=== PATIENT | male | born 1940 | race Caucasian/White ===

== ENCOUNTER → 2023-05-08 07:38 | Outpatient (REF) | payer MEDICARE, SELFPAY | LOC: WOUND 07:38 | PROVIDERS: ATTENDING PHYSICIAN Surgery; REFERRING PHYSICIAN Family Medicine | DX: I87.313 Chronic venous hypertension (idiopathic) with ulcer of bilateral lower extremity (principal); L97.811 Non-pressure chronic ulcer of other part of right lower leg limited to breakdown of skin; L97.821 Non-pressure chronic ulcer of other part of left lower leg limited to breakdown of skin; I89.0 Lymphedema, not elsewhere classified; R73.01 Impaired fasting glucose; I25.10 Atherosclerotic heart disease of native coronary artery without angina pectoris; I65.21 Occlusion and stenosis of right carotid artery; I10 Essential (primary) hypertension; Z98.890 Other specified postprocedural states | CPT/HCPCS: 97597; 99204 ==

== ENCOUNTER → 2023-05-09 14:58 | Outpatient (REF) | payer MEDICARE, SELFPAY | LOC: WOUND 14:58 | PROVIDERS: ATTENDING PHYSICIAN Surgery; REFERRING PHYSICIAN Family Medicine | DX: I87.313 Chronic venous hypertension (idiopathic) with ulcer of bilateral lower extremity (principal); L97.811 Non-pressure chronic ulcer of other part of right lower leg limited to breakdown of skin; I89.0 Lymphedema, not elsewhere classified; R73.01 Impaired fasting glucose; I25.10 Atherosclerotic heart disease of native coronary artery without angina pectoris; I65.21 Occlusion and stenosis of right carotid artery; I10 Essential (primary) hypertension; Z98.890 Other specified postprocedural states | CPT/HCPCS: 29580; 97597; 99204 ==

== ENCOUNTER → 2023-05-22 13:42 | Outpatient (REF) | payer MEDICARE, SELFPAY | LOC: WOUND 13:42 | PROVIDERS: ATTENDING PHYSICIAN Surgery; REFERRING PHYSICIAN Family Medicine | DX: I87.313 Chronic venous hypertension (idiopathic) with ulcer of bilateral lower extremity (principal); L97.811 Non-pressure chronic ulcer of other part of right lower leg limited to breakdown of skin; L97.821 Non-pressure chronic ulcer of other part of left lower leg limited to breakdown of skin; I10 Essential (primary) hypertension; I89.0 Lymphedema, not elsewhere classified; R73.01 Impaired fasting glucose; I25.10 Atherosclerotic heart disease of native coronary artery without angina pectoris; Z98.890 Other specified postprocedural states; I65.21 Occlusion and stenosis of right carotid artery | CPT/HCPCS: 97597 ==

== ENCOUNTER → 2023-10-14 13:53 | Outpatient (REF) | payer MEDICARE, SELFPAY | LOC: DHVS 13:53 | PROVIDERS: ATTENDING PHYSICIAN Surgery Vascular Surgery; FAMILY PHYSICIAN Family Medicine | DX: I65.21 Occlusion and stenosis of right carotid artery (principal) | CPT/HCPCS: 93880 ==

== ENCOUNTER → 2023-11-24 09:52 | Outpatient (REF) | payer MEDICARE, SELFPAY | LOC: HWRAD 09:52 | PROVIDERS: ATTENDING PHYSICIAN Family Medicine | DX: E04.1 Nontoxic single thyroid nodule (principal) | CPT/HCPCS: 76536 ==

== ENCOUNTER → 2024-02-23 06:08 | Outpatient (REF) | payer MEDICARE, SELFPAY ==
[2024-02-23 10:02] LABS: % Basophils 0.9 % (0-2); % Eosinophils 2.7 % (0-6); % Immature Granulocytes 0.3 % (0-0.5); % Lymphocytes 28.3 % (20.5-51.1); % Monocytes 9.3 % (1.7-9.3); % Neutrophils 58.5 % (42.2-75.2); Absolute Basophils 0.1 10^3/uL (0-0.2); Absolute Eosinophils 0.2 10^3/uL (0-0.7); Absolute Lymphocytes 2.2 10^3/uL (1.2-3.4); Absolute Monocytes 0.7 10^3/uL (0.1-0.6); Absolute Neutrophils 4.5 10^3/uL (1.4-6.5); Hemoglobin 13.2 g/dL (13.0-18.0); Mean Corp Hgb Conc. 33.8 g/dL (33.0-37.0); Mean Corpuscular Hgb 30.3 pg (27.0-31.0); Mean Corpuscular Volume 89.4 fL (80.0-94.0); Nucleated Red Blood Cells % 0 % (-); Platelet Count 176 10^3/uL (130-400); Red Blood Cell Count 4.36 10^6/uL (4.70-6.10); Red Cell Dist. Width 12.8 % (11.5-14.5); White Blood Cell Count 7.7 10^3/uL (4.8-10.8)
[2024-02-23 10:16] LABS: Glycohemoglobin (HgbA1c) 6.4 % (4.0-5.6)
[2024-02-23 10:20] LABS: ALT (SGPT) 45 U/L (0-50); AST (SGOT) 33 U/L (17-59); Albumin 4.1 g/dl (3.5-5.0); Alkaline Phosphatase 68 U/L (38-126); Blood Urea Nitrogen 20 mg/dl (9-20); Calcium 9.2 mg/dl (8.4-10.2); Carbon Dioxide 30 mmol/L (22-30); Chloride 102 mmol/L (98-107); Glucose 107 mg/dl (70-99); HDL Cholesterol 44 mg/dl; LDL Cholesterol, Calculated 36 mg/dl; Potassium 4.1 mmol/L (3.5-5.1); Sodium 139 mmol/L (135-145); Total Bilirubin 1.3 mg/dl (0.2-1.3); Total Cholesterol 95 mg/dl (50-199); Total Protein 6.6 g/dl (6.3-8.2); Triglyceride 76 mg/dl (10-149); Very Low Density Lipoprotein 15 mg/dl (0-30); eGFR > 60.00
[2024-02-23 10:45] LABS: TSH Reflex To Free T4 0.69 uIU/ml (0.47-4.68)
[2024-02-23 11:04] LABS: Vitamin B12 569 pg/ml (239-931)
[2024-02-23 11:19] LABS: Microalbumin, Random Urine < 0.6 mg/dl (0.6-1.7)
== END ==
LOC: HWLAB 06:08
PROVIDERS: ATTENDING PHYSICIAN Family Medicine
DX: E11.42 Type 2 diabetes mellitus with diabetic polyneuropathy (principal); E78.2 Mixed hyperlipidemia; I10 Essential (primary) hypertension; Z79.899 Other long term (current) drug therapy
CPT/HCPCS: 36415; 80053; 80061; 82043; 82570; 82607; 83036; 84443; 85025

== ENCOUNTER → 2024-04-15 12:16 | Outpatient (REF) | payer MEDICARE, SELFPAY | LOC: WOUND 12:16 | PROVIDERS: ATTENDING PHYSICIAN Surgery; FAMILY PHYSICIAN Family Medicine | DX: I87.313 Chronic venous hypertension (idiopathic) with ulcer of bilateral lower extremity (principal); L97.212 Non-pressure chronic ulcer of right calf with fat layer exposed; L97.222 Non-pressure chronic ulcer of left calf with fat layer exposed; I89.0 Lymphedema, not elsewhere classified; I25.10 Atherosclerotic heart disease of native coronary artery without angina pectoris; I10 Essential (primary) hypertension | CPT/HCPCS: 29581; 99213 ==

== ENCOUNTER → 2024-04-19 13:35 | Outpatient (REF) | payer MEDICARE, SELFPAY | LOC: DHVS 13:35 | PROVIDERS: ATTENDING PHYSICIAN Surgery Vascular Surgery; FAMILY PHYSICIAN Family Medicine | DX: Z98.890 Other specified postprocedural states (principal); I65.21 Occlusion and stenosis of right carotid artery | CPT/HCPCS: 93880 ==

== ENCOUNTER → 2024-04-22 14:20 | Outpatient (REF) | payer MEDICARE, SELFPAY | LOC: WOUND 14:20 | PROVIDERS: ATTENDING PHYSICIAN Surgery; FAMILY PHYSICIAN Family Medicine | DX: I87.313 Chronic venous hypertension (idiopathic) with ulcer of bilateral lower extremity (principal); L97.212 Non-pressure chronic ulcer of right calf with fat layer exposed; L97.222 Non-pressure chronic ulcer of left calf with fat layer exposed; I89.0 Lymphedema, not elsewhere classified; I25.10 Atherosclerotic heart disease of native coronary artery without angina pectoris; I10 Essential (primary) hypertension | CPT/HCPCS: 99213 ==

== ENCOUNTER → 2024-04-29 13:54 | Outpatient (REF) | payer MEDICARE, SELFPAY | LOC: WOUND 13:54 | PROVIDERS: ATTENDING PHYSICIAN Surgery; FAMILY PHYSICIAN Family Medicine | DX: I87.313 Chronic venous hypertension (idiopathic) with ulcer of bilateral lower extremity (principal); L97.212 Non-pressure chronic ulcer of right calf with fat layer exposed; L97.222 Non-pressure chronic ulcer of left calf with fat layer exposed; I89.0 Lymphedema, not elsewhere classified; I25.10 Atherosclerotic heart disease of native coronary artery without angina pectoris; I10 Essential (primary) hypertension | CPT/HCPCS: 99212 ==

== ENCOUNTER → 2024-05-19 14:19 | Outpatient (REF) | payer MEDICARE, SELFPAY | LOC: HWRAD 14:19 | PROVIDERS: ATTENDING PHYSICIAN Nurse Practitioner; FAMILY PHYSICIAN Family Medicine | DX: N43.3 Hydrocele, unspecified (principal) | CPT/HCPCS: 76870; 93976 ==

== ENCOUNTER → 2024-05-20 13:36 | Outpatient (REF) | payer MEDICARE, SELFPAY ==
[2024-05-20 16:41] LABS: PSA, Total - Diagnostic 0.25 ng/ml (0.0-4.0)
== END ==
LOC: HWLAB 13:36
PROVIDERS: ATTENDING PHYSICIAN Nurse Practitioner; FAMILY PHYSICIAN Family Medicine
DX: R60.9 Edema, unspecified (principal); N40.0 Benign prostatic hyperplasia without lower urinary tract symptoms
CPT/HCPCS: 36415; 84153

== ENCOUNTER 2024-07-15 06:20 | Day surgery (SDC) | payer MEDICARE, SELFPAY ==
[2024-07-15] VITALS (11 sets, daily range): BP systolic 118–175; BP diastolic 56–105; BMI 34.8
[2024-07-15 06:28] LABS: Glucose - Point of Care 113 mg/dl (70-99)
[2024-07-15] MEDS: TYLENOL 1000 MG PO (06:45)
--- NOTE | 2024-07-15 07:02 | W.SUR.PREOP ---
Pre-Operative Surgical Note
-
I have examined this patient prior to the performance of the scheduled procedure.
The patient's condition is unchanged from the time of the current History and
Physical and the patient is able to undergo the scheduled procedure.
--- NOTE | 2024-07-15 07:02 | HP.FOC2 ---
Focused History & Physical
Chief Complaint
HPI:
Chief Complaint: Right inguinal hernia
HPI / Indication for Planned Procedure: Robotic right inguinal hernia repair with mesh
Relevant Past Medical History: Coronary Artery Disease and Hypertension
Relevant Social History: Negative
Relevant Family History: Negative
Relevant Past Surgical History: Positive for (Cholecystectomy)
Review of Systems
Review of Pertinent Systems: All Systems Negative
Medication
See Medication form for detailed medications: Yes
Medication List (including Herbals & OTC):
atorvastatin 40 mg tablet 40 mg PO QPM High Cholesterol 06/02/17
fluticasone propionate 50 mcg/actuation nasal spray,suspension 2 spray intranasal HS Allergies 01/30/23
lisinopril 2.5 mg tablet 2.5 mg PO BID HTN 01/30/23
metformin 500 mg tablet 500 mg PO QPM Diabetes 01/30/23
triamterene 37.5 mg-hydrochlorothiazide 25 mg tablet 1 tab PO DAILY Blood Pressure 01/30/23
alfuzosin 10 mg tablet,extended release 24 hr 10 mg PO HS 07/12/24
aspirin 81 mg tablet,delayed release 81 mg PO DAILY 07/12/24
cholecalciferol (vitamin D3) 25 mcg (1,000 unit) tablet (Vitamin D3) 25 mcg PO DAILY 07/12/24
huoseymdhpf-pml-xtvqfoxku-vitC capsule (Glucosamine Complex-MSM capsule) 1 cap PO DAILY 07/12/24
aqpaiclbsjfi-lxbbcdif-bcpguu tablet (Multivitamin 50 Plus tablet) 1 tab PO DAILY 07/12/24
omega 5-wel-aqq-fish oil 1,200 mg (144 mg-216 mg) capsule (Fish Oil) 1 cap PO DAILY 07/12/24
Medications Reviewed: Yes
Allergies and Reactions
Patient has Allergies: Yes
Noted Allergies and Reactions:
Allergy/AdvReac Type Severity Reaction Status Date / Time
pollen extracts Allergy hayfever Verified 07/15/24 06:23
cephalexin [From Keflex] AdvReac Nausea / Verified 07/15/24 06:23
Vomiting
Pertinent Physical Exam
All Other Systems: Negative
Head/Neck: Normal
Diagnosis / Assessment
This is an 83-year-old male with a symptomatic right inguinal hernia
Plan / Procedure
Will plan for the robotic right inguinal hernia repair with mesh, possible left.
Anesthesia/Sedation to be done by Anesthesia Provider: Yes
--- NOTE | 2024-07-15 09:24 | W.IMMPOSTOP ---
Surgical Immed Post Op Note
-
Primary Surgeon: Leif Delaney MD
Assisting Surgeon: None
Pre-op Diagnosis: Right inguinal hernia
Post-op Diagnosis: Same
Procedure Performed: Robotic right inguinal hernia repair with mesh
Anesthesia Type: General
Specimen / Cultures: None
Estimated Blood Loss: 11 cc
Complications: None
Operative Findings: Large indirect inguinal hernia with small aperture containing mostly medial umbilical ligament fat. No direct or femoral defects. No cord lipoma. Critical view of the MPO obtained. Reinforced with a large right 3D max mid
weight uncoated polypropylene mesh.
POST OP PLAN:
Will discharge home with an ice pack after voiding.
--- NOTE | 2024-07-15 09:25 | OR.RPT ---
Operative Report
Operative Report
Patient Name: Prateek Brennan
: 1940
Date of Operation: 07/15/2024
Preoperative Diagnosis: Reducible Inguinal hernia, right
Postoperative Diagnosis: Same
Procedure(s):
Robotic Inguinal Hernia Repair with mesh, right (MAHESH approach)
Surgeon(s):
Dr. Delaney
Detective [place](s):
DENNYS Martinez
Anesthesia: General
Estimated Blood Loss: 11 cc
Urine Output: None
Drains/Lines/Implants: Large 3D Max Bard mid weight uncoated polypropylene mesh
Specimens: None
Indication for surgery: The patient has a history of groin pain and noted on exam to have a right inguinal Hernia. Following review of therapeutic options they have elected to undergo a minimally invasive repair.
Operative Findings: Large indirect inguinal hernia with small aperture containing mostly medial umbilical ligament fat. No direct or femoral defects. No cord lipoma. Critical view of the MPO obtained. Reinforced with a large right 3D max mid
weight uncoated polypropylene mesh.
Details of the operation:
The patient was brought to the Operating Room and placed in the supine position with the arms tucked. IV antibiotics were infused and Venodyne stockings placed. Following uneventful induction of general endotracheal anesthesia, an orogastric tube
were placed. The abdomen was prepped and draped in the usual sterile fashion. The abdomen was entered using a Veress technique which required 1 pass, pneumoperitoneum to 15 mmHg was obtained without difficulty. An 8mm trochar was passed through
the abdominal wall roughly 20 cm cephalad to the inguinal canal. We then confirmed that no inadvertent injury was made while passing the trocar or Veress needle. We then placed two additional 8 mm ports in the left upper and right upper quadrants.
We then docked the robot with a Prograsper in the left hand port and monopolar scissors in the right. A right inguinal hernia was readily identified. No defect was noted on the contralateral side. We then began by creating a flap at the level of
the ASIS laterally working our way medially to the medial umbilical fold. We did enter the retrorectus space as the peritoneum was very thin. Staying onto the peritoneum we were able to circumferentially dissect around the hernia sac and and peel
it off of the underlying spermatic cord and testicular vessels, taking care to preserve them. Medially we identified the midline pubis as well as Bossman's ligament and ensured to dissect 2 cm below the pubic rim over the bladder. After exposure of
the entire myopectineal orifice we identified and reduced: A large indirect inguinal hernia with a fairly small aperture containing mostly medial umbilical fat, no direct inguinal hernia, no femoral hernia, and no cord lipoma
We then fixated a large 3D max mesh with a 2-0 Vicryl stitch at coopers medially and superior laterally. The flap was then closed with a running 2-0 barbed monocryl suture ensuring that the tail was cut flush with the medial fat pad so that no
barbs were exposed. During the closure of the flap an Angiocath was inserted and 20 cc of quarter percent Marcaine was instilled. The area in the flap cavity was then evacuated of air confirming that the mesh was flush and there were no folds.
There were multiple small rents in the peritoneum of the flap which was easily closed using the redundant hernia sac tissue. All needles and instruments were then removed and the robot was undocked. The abdomen was then desufflated, and
pneumoperitoneum evacuated. All skin sites were then closed with 4-0 Monocryl followed by Dermabond. Counts were correct and overall, the patient tolerated the procedure well and was taken to the Recovery Room postoperatively in stable condition.
I was the attending physician and performed the procedure with assistance of the PA above. The assistance of DENNYS Martinez was required due to the complexity of the procedure. During the procedure Ning assisted with port placement, instrument and
needle exchanges, and closure of the wound. I was present for all portions of the case, excluding skin closure.
Leif Delaney MD
[2024-07-15 09:38] LABS: Glucose - Point of Care 149 mg/dl (70-99)
[2024-07-15] MEDS: MOTRIN 600 MG PO (11:02)
== END 2024-07-15 12:15 | disposition home or self-care (01) ==
LOC: SDS 06:20
PROVIDERS: ATTENDING PHYSICIAN Surgery
DX: K40.90 Unilateral inguinal hernia, without obstruction or gangrene, not specified as recurrent (principal)
CPT/HCPCS: 49650; 82962; C1781

== ENCOUNTER → 2024-08-16 06:27 | Outpatient (REF) | payer MEDICARE, SELFPAY ==
[2024-08-16 09:54] LABS: ALT (SGPT) 49 U/L (0-50); AST (SGOT) 38 U/L (17-59); Albumin 4.3 g/dl (3.5-5.0); Alkaline Phosphatase 65 U/L (38-126); Blood Urea Nitrogen 22 mg/dl (9-20); Calcium 9.3 mg/dl (8.4-10.2); Carbon Dioxide 32 mmol/L (22-30); Chloride 102 mmol/L (98-107); Glucose 101 mg/dl (70-99); HDL Cholesterol 46 mg/dl; LDL Cholesterol, Calculated 43 mg/dl; Potassium 4.1 mmol/L (3.5-5.1); Sodium 141 mmol/L (135-145); Total Bilirubin 1.2 mg/dl (0.2-1.3); Total Cholesterol 103 mg/dl (50-199); Total Protein 6.4 g/dl (6.3-8.2); Triglyceride 71 mg/dl (10-149); Very Low Density Lipoprotein 14 mg/dl (0-30); eGFR > 60.00
[2024-08-16 10:06] LABS: % Basophils 1.2 % (0-2); % Eosinophils 8.2 % (0-6); % Immature Granulocytes 0.1 % (0-0.5); % Lymphocytes 31.2 % (20.5-51.1); % Monocytes 9.2 % (1.7-9.3); % Neutrophils 50.1 % (42.2-75.2); Absolute Basophils 0.1 10^3/uL (0-0.2); Absolute Eosinophils 0.6 10^3/uL (0-0.7); Absolute Lymphocytes 2.1 10^3/uL (1.2-3.4); Absolute Monocytes 0.6 10^3/uL (0.1-0.6); Absolute Neutrophils 3.4 10^3/uL (1.4-6.5); Hematocrit 41.1 % (39.0-52.0); Hemoglobin 13.3 g/dL (13.0-18.0); Mean Corp Hgb Conc. 32.4 g/dL (33.0-37.0); Mean Corpuscular Hgb 30.5 pg (27.0-31.0); Mean Corpuscular Volume 94.3 fL (80.0-94.0); Mean Platelet Volume 9.8 fL (7.4-10.4); Nucleated Red Blood Cells % 0 % (-); Platelet Count 187 10^3/uL (130-400); Red Blood Cell Count 4.36 10^6/uL (4.70-6.10); Red Cell Dist. Width 13.1 % (11.5-14.5); White Blood Cell Count 6.7 10^3/uL (4.8-10.8)
[2024-08-16 10:22] LABS: TSH Reflex To Free T4 1.09 uIU/ml (0.47-4.68)
[2024-08-16 10:38] LABS: Glycohemoglobin (HgbA1c) 5.8 % (4.0-5.6)
[2024-08-16 10:49] LABS: Microalbumin, Random Urine 0.8 mg/dl (0.6-1.7); Microalbumin/creatinine Ratio 9.3 mg/g
== END ==
LOC: HWLAB 06:27
PROVIDERS: ATTENDING PHYSICIAN Family Medicine
DX: I10 Essential (primary) hypertension (principal); E78.2 Mixed hyperlipidemia; E11.42 Type 2 diabetes mellitus with diabetic polyneuropathy; E04.1 Nontoxic single thyroid nodule
CPT/HCPCS: 36415; 80053; 80061; 82043; 82570; 83036; 84443; 85025

== ENCOUNTER 2024-09-09 15:16 | Emergency (ER) | payer MEDICARE, SELFPAY ==
[2024-09-09 15:42] VITALS: BP 178/70
[2024-09-09 16:04] LABS: % Basophils 1.4 % (0-2); % Eosinophils 7.5 % (0-6); % Immature Granulocytes 0.5 % (0-0.5); % Lymphocytes 31.7 % (20.5-51.1); % Monocytes 16.1 % (1.7-9.3); % Neutrophils 42.8 % (42.2-75.2); Absolute Basophils 0.1 10^3/uL (0-0.2); Absolute Eosinophils 0.3 10^3/uL (0-0.7); Absolute Lymphocytes 1.3 10^3/uL (1.2-3.4); Absolute Monocytes 0.7 10^3/uL (0.1-0.6); Absolute Neutrophils 1.8 10^3/uL (1.4-6.5); Hematocrit 36.4 % (39.0-52.0); Hemoglobin 12.6 g/dL (13.0-18.0); Mean Corp Hgb Conc. 34.6 g/dL (33.0-37.0); Mean Corpuscular Volume 89.7 fL (80.0-94.0); Mean Platelet Volume 9.3 fL (7.4-10.4); Nucleated Red Blood Cells % 0 % (-); Platelet Count 155 10^3/uL (130-400); Red Blood Cell Count 4.06 10^6/uL (4.70-6.10); Red Cell Dist. Width 13.3 % (11.5-14.5); White Blood Cell Count 4.2 10^3/uL (4.8-10.8)
[2024-09-09 16:20] LABS: ALT (SGPT) 41 U/L (0-50); AST (SGOT) 36 U/L (17-59); Albumin 4.2 g/dl (3.5-5.0); Alkaline Phosphatase 68 U/L (38-126); Blood Urea Nitrogen 16 mg/dl (9-20); Calcium 8.9 mg/dl (8.4-10.2); Carbon Dioxide 29 mmol/L (22-30); Chloride 104 mmol/L (98-107); Glucose 108 mg/dl (70-99); Potassium 3.7 mmol/L (3.5-5.1); Sodium 138 mmol/L (135-145); Total Bilirubin 1.2 mg/dl (0.2-1.3); Total Protein 6.6 g/dl (6.3-8.2); eGFR > 60.00
[2024-09-09 17:15] VITALS: BP 137/72
--- NOTE | 2024-09-09 19:29 | ED.SKININJ ---
HPI-Injury
General
Chief Complaint: Head Injury
Source: patient
Exam Limitations: none
Time Seen by Provider: 09/09/24 17:36
Nursing documentation reviewed up to this point in time: agreed with
History of Present Illness-Injury
Is this injury a work related problem?: No
Is pt an associate of [facility]?: No
Initial Injury comments:
Patient to ED for eval of head injury s/p fall. States he lost his balance and fell in bedroom. Hit face on floor. No LOC. Has large abrasion to forehead, bruising to left orbit. Brought to ED by spouse of eval. Incident occurred 2 days ago.
Past History
Past History
ED Past Medical History: HTN, Hypercholesterolemia and Other (sleep apnea)
ED Past Surgical History: Orthopedic
Social History
Personal:
Living: with family
Review of Systems
Review of Systems
Allergies reviewed?: Yes
All Other Systems: ROS reviewed and negative except as documented in HPI and ROS
Constitutional: Reports no symptoms
EENT: Reports other (bruising left orbit)
Respiratory: Reports no symptoms
Cardiac: Reports no symptoms
ABD/GI: Reports no symptoms
: Reports no symptoms
Musculoskeletal: Reports no symptoms
Skin: Reports other (abrasion to forehead)
Neurological: Reports no symptoms
Psychiatric: Reports no symptoms
Phy Exam
General Physical Exam
General Presentation: well appearing and no apparent distress
General age: appears stated age
General Skin: warm and dry
General Habitus: normal
General Mental: alert
General Hydration: appears well hydrated
Eye Exam
Eye Exam: PERRL, globe normal and other (Bruising to left medial orbit.)
Neurological Exam
Neurological Exam: alert, oriented x3, CN II-XII intact, no motor deficits, no sensory deficits, speech normal and normal gait
[place] Coma Scale
Eye Opening: Spontaneous
Verbal Response: Oriented
Motor Response: Obeys Commands
GCS Total Score: 15
Musculoskeletal Exam
Musculoskeletal Exam: full ROM, neuro vasc intact and other (Full nonpainful ROM head/neck, upper and lower extremities.)
Skin Exam
Skin Exam: normal color, warm/dry, no rash and other (Large superficial abrasion to forhead/anterior scalp. No s/s infection)
Psychiatric Exam
Psychiatric Exam: normal mood/affect
Course
Orders/Labs/Results
Orders:
Orders
09/09/24 15:[address] [CT Head W/o Iv Contrast] Urgent
Comment:
Reason For Exam: head injury
09/09/24 15:49
Cervical Spine wo Contrast CT [CT Cervical Spine W/o Iv Contr] Urgent
Comment:
Reason For Exam: head injury
09/09/24 15:56
Complete Blood Count/With Diff Urgent
Comprehensive Metabolic Panel Urgent
09/09/24 17:[address] [CT Orbits W/o Iv Contrast] Urgent
Comment:
Reason For Exam: attn left orbit
Abnormal Lab Results
09/09/24
15:56
WBC 4.2 L 10^3/uL
(4.8-10.8)
RBC 4.06 L 10^6/uL
(4.70-6.10)
Hgb 12.6 L g/dL
(13.0-18.0)
Hct 36.4 L %
(39.0-52.0)
Absolute Monos (auto) 0.7 H 10^3/uL
(0.1-0.6)
Monocytes % 16.1 H %
(1.7-9.3)
Eosinophils % 7.5 H %
(0-6)
Glucose 108 H mg/dl
(70-99)
09/09/24 15:56
09/09/24 15:56
Vital Signs
Initial and Last Documented VS:
Initial Vital Signs
Temp Pulse Resp BP Pulse Ox
98.5 F 58 20 178/70 97
09/09/24 15:42 09/09/24 15:42 09/09/24 15:42 09/09/24 15:42 09/09/24 15:42
Last Documented Vital Signs
Temp Pulse Resp BP Pulse Ox
98.1 F 63 18 137/72 96
09/09/24 17:15 09/09/24 17:15 09/09/24 17:15 09/09/24 17:15 09/09/24 17:15
*Radiology
Radiology exam reviewed: radiology read reviewed
*Pulse Oximetry
Patient hypoxic: no
*Critical Care Note
Total Time (30-74mins, 75-104mins- exclusive of procedures): Not Applicable
ED Attending Note
-
Portions of this chart may have been created with voice recognition software.� Occasional wrong word or��sound alike� substitutions may have occurred due to the inherent limitations of voice recognition software.
Discharge Plan
Departure
Patient Disposition: Home (Routine Discharge)
Date of Disposition: 09/09/24
Time of Disposition: 19:26
Patient with high blood pressure during this ER visit?: No
Condition: Good
Covid-19: Not Applicable
Discharge Problem:
Head injury, Contusion of left orbit, Abrasion of scalp
Instructions: Wound Care (DC), Head Injury in Adults (DC), Contusion (DC)
Prescriptions:
No Action
atorvastatin 40 MG tablet
40 mg PO QPM
triamterene-hydrochlorothiazid 37.5-25 mg Tablet
1 tab PO DAILY
fluticasone propionate 50 mcg/actuation [place],Suspension
2 spray INTRANASAL HS
lisinopril 2.5 mg Tablet
2.5 mg PO BID
metformin 500 mg Tablet
500 mg PO QPM
aspirin 81 mg Tablet,Delayed Release (Dr/Ec)
81 mg PO DAILY
Multivitamin 50 Plus Tablet
1 tab PO DAILY
Glucosamine Complex-MSM Capsule
1 cap PO DAILY
alfuzosin 10 mg Tablet Extended Release 24 Hr
10 mg PO HS
omega 0-yqk-zsr-fish oil [Fish Oil] 1,200 (144-216) mg Capsule
1 cap PO DAILY
cholecalciferol (vitamin D3) [Vitamin D3] 25 mcg (1,000 unit) Tablet
25 mcg PO DAILY
acetaminophen [acetaminophen] 325 mg tablet
650 mg PO Q6HPRN PRN (Reason: mild pain) Qty: 14 0RF
ibuprofen 600 mg tablet
600 mg PO Q6H PRN (Reason: pain) Qty: 14 0RF
Referrals:
Imelda Gandhi MD [Family Provider] - Follow up in 2-3 days
Interventions
Interventions:
*Risk Screen - Suicide Last Done: 09/09/24 15:42
*Neglect/Abuse Screening Last Done: 09/09/24 15:42
ED- Neurological Assessment Last Done: 09/09/24 18:42
ED-Skin Assessment Last Done: 09/09/24 18:42
Discharge Date and Time
Print Language: WELSH
[2024-09-09 19:50] VITALS: BP 158/68
== END 2024-09-09 19:52 | disposition home or self-care (01) ==
LOC: EMR 15:16
PROVIDERS: EMERGENCY PHYSICIAN Emergency Medicine; FAMILY PHYSICIAN Family Medicine
DX: S09.90XA Unspecified injury of head, initial encounter (principal); S05.12XA Contusion of eyeball and orbital tissues, left eye, initial encounter; W01.0XXA Fall on same level from slipping, tripping and stumbling without subsequent striking against object, initial encounter; I10 Essential (primary) hypertension; E78.00 Pure hypercholesterolemia, unspecified; G47.30 Sleep apnea, unspecified
CPT/HCPCS: 99284; 70450; 70480; 72125; 80053; 85025; 99285

== ENCOUNTER → 2024-09-15 06:40 | Outpatient (REF) | payer MEDICARE, SELFPAY ==
[2024-09-15 09:46] LABS: % Basophils 1.2 % (0-2); % Immature Granulocytes 0.6 % (0-0.5); % Monocytes 11.5 % (1.7-9.3); % Neutrophils 50.7 % (42.2-75.2); Absolute Basophils 0.1 10^3/uL (0-0.2); Absolute Eosinophils 0.3 10^3/uL (0-0.7); Absolute Monocytes 0.7 10^3/uL (0.1-0.6); Absolute Neutrophils 3.3 10^3/uL (1.4-6.5); Hematocrit 39.7 % (39.0-52.0); Hemoglobin 13.3 g/dL (13.0-18.0); Mean Corp Hgb Conc. 33.5 g/dL (33.0-37.0); Mean Corpuscular Hgb 30.9 pg (27.0-31.0); Mean Corpuscular Volume 92.3 fL (80.0-94.0); Mean Platelet Volume 9.1 fL (7.4-10.4); Nucleated Red Blood Cells % 0 % (-); Platelet Count 209 10^3/uL (130-400); White Blood Cell Count 6.5 10^3/uL (4.8-10.8)
[2024-09-15 10:05] LABS: Blood Urea Nitrogen 25 mg/dl (9-20); Calcium 9.5 mg/dl (8.4-10.2); Carbon Dioxide 31 mmol/L (22-30); Chloride 99 mmol/L (98-107); Glucose 105 mg/dl (70-99); Potassium 4.2 mmol/L (3.5-5.1); Sodium 139 mmol/L (135-145); eGFR > 60.00
[2024-09-15 10:07] LABS: Urine Albumin Negative (Neg - Trace); Urine Bilirubin Negative (Negative); Urine Character Clear (Clear); Urine Color Yellow; Urine Glucose Negative (Negative); Urine Ketone Negative (Negative); Urine Leukocyte Negative (Negative); Urine Nitrite Negative (Negative); Urine Occult Blood Negative (Negative); Urine Urobilinogen Negative (Neg - 1+)
== END ==
LOC: HWLAB 06:40
PROVIDERS: ATTENDING PHYSICIAN Urology; FAMILY PHYSICIAN Family Medicine
DX: N40.1 Benign prostatic hyperplasia with lower urinary tract symptoms (principal); R35.1 Nocturia; Z01.812 Encounter for preprocedural laboratory examination; I65.22 Occlusion and stenosis of left carotid artery
CPT/HCPCS: 36415; 80048; 81003; 85025; 87086

== ENCOUNTER 2024-10-01 20:53 | Emergency (ER) | payer MEDICARE, SELFPAY ==
[2024-10-01 21:12] VITALS: BP 174/68
[2024-10-01 22:08] VITALS: BMI 33.0
[2024-10-01 22:14] VITALS: BP 142/76
--- NOTE | 2024-10-01 23:20 | ED.GENMED ---
History of Present Illness
General
Chief Complaint: Male Genito-Urinary Symptoms
Source: patient and spouse
Exam Limitations: none
Time Seen by Provider: 10/01/24 21:47
History of Present Illness
History of Present Illness:
This is an 84-year-old male who recently had a procedure done to help with his urine output by urology. States he had a catheter in but was removed this past Friday. He had been urinating okay but has not urinated since about 2:00. Did not
notice any blood. No fevers. Reports pain in the lower abdomen down into the penis. Denies fevers. Is on Bactrim. states that he did was urinating okay until today
Past History
Past History
ED Past Medical History: HTN, Hypercholesterolemia and Other (sleep apnea, constipation, diverticulitis, hernia, BPH, obstructive sleep apnea, neuropathy, cataracts)
ED Past Surgical History: Orthopedic and Urological
Social History
Personal:
Living: with family
Phy Exam
Physical Exam
Physical Exam:
CONSTITUTIONAL Patient alert and oriented to person, place and time. Well-appearing. Vital signs reviewed.
HEAD atraumatic, normocephalic.
EYES eyelids normal to inspection, Extraocular muscles intact, Conjunctiva normal, Sclera normal.
NECK normal range of motion, Trachea midline, no jugular venous distention.
RESPIRATORY CHEST No respiratory distress noted, Chest expansion equal
ABDOMEN moderate lower abdominal tenderness with mild lower abdominal distention, scrotum does appear swollen a bit. Minor irritation noted at the penile.
BACK normal inspection, no obvious deformities
UPPER EXTREMITY range of motion normal, Motor strength normal, no cyanosis, no edema.
LOWER EXTREMITY range of motion normal, Motor strength normal, no cyanosis, no edema.
NEURO Speech normal, No focal motor deficits, [place] coma scale 15, Memory normal, Cranial Nerves intact to screening exam.
SKIN skin warm, dry, and normal in color.
Course
Orders/Labs/Results
Orders:
Orders
10/01/24 23:05
Urinalysis Reflex To Culture Urgent
Date Specimen was Collected: 10/01/24
Time Specimen was Collected: 23:07
Vital Signs
Initial and Last Documented VS:
Initial Vital Signs
Temp Pulse Resp BP Pulse Ox
98.6 F 60 20 174/68 98
10/01/24 21:12 10/01/24 21:12 10/01/24 21:12 10/01/24 21:12 10/01/24 21:12
Last Documented Vital Signs
Temp Pulse Resp BP Pulse Ox
98.6 F 71 14 142/76 97
10/01/24 21:12 10/01/24 22:30 10/01/24 22:30 10/01/24 22:14 10/01/24 22:30
MDM/Problems Addressed
MDM/Problems Addressed:
Urinary retention
*Pulse Oximetry
Patient hypoxic: no
*Critical Care Note
Total Time (30-74mins, 75-104mins- exclusive of procedures): Not Applicable
Data Reviewed
Review of Other/Old Records Reveals: Discharge Summary (Discharge summary reviewed from February 2023)
Source: patient and family
Further Testing Considered But Not Given:
Consider CT imaging but patient reports significant improvement after Wset replaced
Patient Management
Escalation/DeEscalation of care consider admission/obs:
Patient placed 1400 cc of urine into the urinary catheter bag. Feels much better. Okay for discharge. Will finish his current Bactrim tomorrow but I will extend him for 5 days in light of his new catheter. Follow-up with urology
ED Attending Note
-
Portions of this chart may have been created with voice recognition software.� Occasional wrong word or��sound alike� substitutions may have occurred due to the inherent limitations of voice recognition software.
Discharge Plan
Departure
Patient Disposition: Home (Routine Discharge)
Date of Disposition: 10/01/24
Time of Disposition: 23:21
Patient with high blood pressure during this ER visit?: Yes
Discharge Problem:
Acute urinary retention
Instructions: Urinary Retention (DC), BLOOD PRESSURE
Prescriptions:
New
sulfamethoxazole-trimethoprim [Bactrim DS] 800-160 mg tablet
1 tab PO BID Qty: 10 0RF
No Action
atorvastatin 40 MG tablet
40 mg PO QPM
triamterene-hydrochlorothiazid 37.5-25 mg Tablet
1 tab PO DAILY
fluticasone propionate 50 mcg/actuation [place],Suspension
2 spray INTRANASAL HS
lisinopril 2.5 mg Tablet
2.5 mg PO BID
metformin 500 mg Tablet
500 mg PO QPM
aspirin 81 mg Tablet,Delayed Release (Dr/Ec)
81 mg PO DAILY
Multivitamin 50 Plus Tablet
1 tab PO DAILY
Glucosamine Complex-MSM Capsule
1 cap PO DAILY
alfuzosin 10 mg Tablet Extended Release 24 Hr
10 mg PO HS
omega 9-zib-kyh-fish oil [Fish Oil] 1,200 (144-216) mg Capsule
1 cap PO DAILY
cholecalciferol (vitamin D3) [Vitamin D3] 25 mcg (1,000 unit) Tablet
25 mcg PO DAILY
acetaminophen [acetaminophen] 325 mg tablet
650 mg PO Q6HPRN PRN (Reason: mild pain) Qty: 14 0RF
ibuprofen 600 mg tablet
600 mg PO Q6H PRN (Reason: pain) Qty: 14 0RF
Referrals:
Imelda Gandhi MD [Family Provider] -
Activity Restrictions/Additional Instructions:
Please see your urologist in the next 1 week for follow-up and reevaluation peer return immediately for worsening symptoms, vomiting, fevers, blood in urine or any other concerns.
Interventions
Interventions:
*General Assessment Last Done: 10/01/24 22:08
*Neglect/Abuse Screening Last Done: 10/01/24 22:08
ED- Fall Risk Assessment Last Done: 10/01/24 22:08
*ED COVID-19 Vaccine History Last Done: 10/01/24 22:08
ED-Male Genitourinary Assessment Last Done: 10/01/24 22:08
Discharge Date and Time
Print Language: ALBANIAN
[2024-10-01 23:29] VITALS: BP 108/67
[2024-10-01 23:42] LABS: Urine Albumin Trace (Neg - Trace); Urine Bilirubin Negative (Negative); Urine Character Clear (Clear); Urine Color Yellow; Urine Glucose Negative (Negative); Urine Ketone Negative (Negative); Urine Leukocyte Negative (Negative); Urine Nitrite Negative (Negative); Urine Occult Blood 4+ (Negative); Urine Specific Gravity 1.005 (<1.030); Urine Urobilinogen Negative (Neg - 1+); Urine pH 6.5 (5.0-9.0)
[2024-10-02] VITALS: BP 102/73
[2024-10-02 01:26] LABS: Urine Bacteria Few (Negative); Urine Red Blood Cell >100 /HPF (0-2)
== END 2024-10-02 00:35 | disposition home or self-care (01) ==
LOC: EMR 20:53
PROVIDERS: EMERGENCY PHYSICIAN Emergency Medicine; FAMILY PHYSICIAN Family Medicine; OTHER PHYSICIAN Urology
DX: N40.1 Benign prostatic hyperplasia with lower urinary tract symptoms (principal); R33.8 Other retention of urine; I10 Essential (primary) hypertension
CPT/HCPCS: 99283; 51702; 81003; 81015

== ENCOUNTER → 2024-10-27 14:48 | Outpatient (REF) | payer MEDICARE, SELFPAY | LOC: DHVS 14:48 | PROVIDERS: ATTENDING PHYSICIAN Surgery Vascular Surgery; FAMILY PHYSICIAN Family Medicine | DX: I65.21 Occlusion and stenosis of right carotid artery (principal) | CPT/HCPCS: 93880 ==

== ENCOUNTER → 2024-11-19 13:42 | Outpatient (REF) | payer MEDICARE, SELFPAY | LOC: HWRCS 13:42 | PROVIDERS: ATTENDING PHYSICIAN Internal Medicine Cardiovascular Disease; FAMILY PHYSICIAN Family Medicine | DX: I08.0 Rheumatic disorders of both mitral and aortic valves (principal); I77.810 Thoracic aortic ectasia | CPT/HCPCS: 93306 ==

== ENCOUNTER → 2025-02-10 06:22 | Outpatient (REF) | payer MEDICARE, SELFPAY ==
[2025-02-10 09:55] LABS: % Basophils 1.3 % (0-2); % Eosinophils 4.4 % (0-6); % Immature Granulocytes 0.4 % (0-0.5); % Lymphocytes 31.3 % (20.5-51.1); % Monocytes 9.2 % (1.7-9.3); % Neutrophils 53.4 % (42.2-75.2); Absolute Basophils 0.1 10^3/uL (0-0.2); Absolute Eosinophils 0.3 10^3/uL (0-0.7); Absolute Lymphocytes 2.2 10^3/uL (1.2-3.4); Absolute Monocytes 0.6 10^3/uL (0.1-0.6); Absolute Neutrophils 3.7 10^3/uL (1.4-6.5); Hematocrit 39.5 % (39.0-52.0); Hemoglobin 13.4 g/dL (13.0-18.0); Mean Corp Hgb Conc. 33.9 g/dL (33.0-37.0); Mean Corpuscular Hgb 31.5 pg (27.0-31.0); Mean Corpuscular Volume 92.9 fL (80.0-94.0); Mean Platelet Volume 9.6 fL (7.4-10.4); Nucleated Red Blood Cells % 0 % (-); Platelet Count 191 10^3/uL (130-400); Red Blood Cell Count 4.25 10^6/uL (4.70-6.10); Red Cell Dist. Width 12.7 % (11.5-14.5)
[2025-02-10 10:45] LABS: ALT (SGPT) 45 U/L (0-50); AST (SGOT) 32 U/L (17-59); Albumin 4.4 g/dl (3.5-5.0); Alkaline Phosphatase 65 U/L (38-126); Blood Urea Nitrogen 18 mg/dl (9-20); Calcium 9.5 mg/dl (8.4-10.2); Carbon Dioxide 32 mmol/L (22-30); Chloride 106 mmol/L (98-107); Glucose 106 mg/dl (70-99); HDL Cholesterol 50 mg/dl; LDL Cholesterol, Calculated 50 mg/dl; Potassium 4.1 mmol/L (3.5-5.1); Sodium 143 mmol/L (135-145); Total Bilirubin 1.4 mg/dl (0.2-1.3); Total Cholesterol 113 mg/dl (50-199); Total Protein 6.9 g/dl (6.3-8.2); Triglyceride 69 mg/dl (10-149); Very Low Density Lipoprotein 13 mg/dl (0-30); eGFR > 60.00
[2025-02-10 10:59] LABS: Microalbumin, Random Urine 0.7 mg/dl (0.6-1.7); Microalbumin/creatinine Ratio 7.7 mg/g; TSH Reflex To Free T4 1.01 uIU/ml (0.47-4.68)
[2025-02-10 11:24] LABS: Vitamin B12 668 pg/ml (239-931)
[2025-02-10 11:25] LABS: Glycohemoglobin (HgbA1c) 5.9 % (4.0-5.6)
== END ==
LOC: HWLAB 06:22
PROVIDERS: ATTENDING PHYSICIAN Family Medicine
DX: I10 Essential (primary) hypertension (principal); E11.42 Type 2 diabetes mellitus with diabetic polyneuropathy; E78.2 Mixed hyperlipidemia; E04.1 Nontoxic single thyroid nodule; Z79.899 Other long term (current) drug therapy
CPT/HCPCS: 36415; 80053; 80061; 82043; 82570; 82607; 83036; 84443; 85025

== ENCOUNTER → 2025-03-14 10:44 | Outpatient (REF) | payer MEDICARE, SELFPAY | LOC: HWRAD 10:44 | PROVIDERS: ATTENDING PHYSICIAN Internal Medicine | DX: E04.1 Nontoxic single thyroid nodule (principal) | CPT/HCPCS: 76536 ==

== ENCOUNTER → 2025-04-11 14:37 | Outpatient (REF) | payer MEDICARE, SELFPAY | LOC: RAD 14:37 | PROVIDERS: ATTENDING PHYSICIAN Registered Nurse; FAMILY PHYSICIAN Family Medicine | DX: I65.21 Occlusion and stenosis of right carotid artery (principal) | CPT/HCPCS: 93880 ==

== ENCOUNTER → 2025-04-27 06:19 | Outpatient (REF) | payer MEDICARE, SELFPAY ==
[2025-04-27 10:07] LABS: Hematocrit 39.7 % (39.0-52.0); Hemoglobin 13.1 g/dL (13.0-18.0); Mean Corp Hgb Conc. 33.0 g/dL (33.0-37.0); Mean Corpuscular Volume 94.1 fL (80.0-94.0); Nucleated Red Blood Cells % 0 % (-); Platelet Count 183 10^3/uL (130-400); Red Cell Dist. Width 12.9 % (11.5-14.5)
[2025-04-27 10:53] LABS: Glycohemoglobin (HgbA1c) 5.7 % (4.0-5.6)
[2025-04-27 11:09] LABS: ALT (SGPT) 50 U/L (0-50); AST (SGOT) 31 U/L (17-59); Albumin 4.3 g/dl (3.5-5.0); Alkaline Phosphatase 59 U/L (38-126); Blood Urea Nitrogen 21 mg/dl (9-20); Calcium 9.7 mg/dl (8.4-10.2); Carbon Dioxide 31 mmol/L (22-30); Chloride 104 mmol/L (98-107); Glucose 108 mg/dl (70-99); HDL Cholesterol 50 mg/dl; LDL Cholesterol, Calculated 51 mg/dl; Potassium 4.1 mmol/L (3.5-5.1); Sodium 139 mmol/L (135-145); Total Protein 6.6 g/dl (6.3-8.2); Very Low Density Lipoprotein 18 mg/dl (0-30); eGFR > 60.00
== END ==
LOC: HWLAB 06:19
PROVIDERS: ATTENDING PHYSICIAN Family Medicine
DX: E11.69 Type 2 diabetes mellitus with other specified complication (principal); I10 Essential (primary) hypertension; E78.2 Mixed hyperlipidemia; I20.89 Other forms of angina pectoris
CPT/HCPCS: 36415; 80053; 80061; 83036; 84443; 85025

== ENCOUNTER → 2025-04-29 07:14 | Outpatient (REF) | payer MEDICARE, SELFPAY | LOC: HWRCS 07:14 | PROVIDERS: ATTENDING PHYSICIAN Nurse Practitioner; FAMILY PHYSICIAN Family Medicine | DX: I25.10 Atherosclerotic heart disease of native coronary artery without angina pectoris (principal); I65.21 Occlusion and stenosis of right carotid artery; I10 Essential (primary) hypertension; I77.810 Thoracic aortic ectasia; I89.0 Lymphedema, not elsewhere classified; R07.89 Other chest pain | CPT/HCPCS: 78452; 93017; A9500; J2785 ==

== ENCOUNTER → 2025-05-25 11:25 | Outpatient (REF) | payer MEDICARE, SELFPAY | LOC: RAD 11:25 | PROVIDERS: ATTENDING PHYSICIAN Family Medicine | DX: M79.89 Other specified soft tissue disorders (principal); M79.604 Pain in right leg; M79.605 Pain in left leg; I89.0 Lymphedema, not elsewhere classified | CPT/HCPCS: 93970 ==

== ENCOUNTER 2025-06-13 17:52 | Emergency (ER) | payer MEDICARE, SELFPAY ==
[2025-06-13 17:57] VITALS: BP 190/89
[2025-06-13 18:13] LABS: Hematocrit 36.3 % (39.0-52.0); Hemoglobin 12.4 g/dL (13.0-18.0); Mean Corp Hgb Conc. 34.2 g/dL (33.0-37.0); Mean Corpuscular Volume 89.4 fL (80.0-94.0); Nucleated Red Blood Cells % 0 % (-); Platelet Count 244 10^3/uL (130-400); Red Cell Dist. Width 12.6 % (11.5-14.5)
[2025-06-13 18:25] LABS: ALT (SGPT) 45 U/L (0-50); AST (SGOT) 40 U/L (17-59); Albumin 4.6 g/dl (3.5-5.0); Alkaline Phosphatase 80 U/L (38-126); Blood Urea Nitrogen 18 mg/dl (9-20); Calcium 9.1 mg/dl (8.4-10.2); Carbon Dioxide 29 mmol/L (22-30); Glucose 92 mg/dl (70-99); Total Protein 7.3 g/dl (6.3-8.2); eGFR > 60.00
[2025-06-13 18:53] LABS: Chloride 103 mmol/L (98-107); Potassium 4.3 mmol/L (3.5-5.1); Sodium 138 mmol/L (135-145)
--- NOTE | 2025-06-13 19:55 | ED.GENMED ---
ED Provider Triage
<Zev Thakur MD, Resident - Last Filed: 06/14/25 00:30>
-
Patient seen by provider in Triage?: Seen in Triage
History of Present Illness
<Zev Thakur MD, Resident - Last Filed: 06/14/25 00:30>
General
Chief Complaint: Swelling
Source: patient and spouse
Exam Limitations: none
Time Seen by Provider: 06/13/25 19:48
History of Present Illness
History of Present Illness:
84-year-old male who presents with worsening of his bilateral lymphedema. Was diagnosed with bilateral lymphedema 4 years ago, and gets wound care with [facility]. He has compression stockings bilaterally on both his legs. Today morning,
woke up with pain behind right ankle and alongside his calf along with increase in size of his right lower extremity and yellowish colored discharge seeping from his compression stockings on right lower extremity. Associated with warmth and
tenderness. No fever, cough, weight gain, dyspnea, abdominal pain, orthopnea, urinary output changes, itching, constipation, diarrhea, shortness of breath, chest pain.
Past History
<Zev Thakur MD, Resident - Last Filed: 06/14/25 00:30>
Past History
ED Past Medical History: HTN, Hypercholesterolemia and Other (sleep apnea, constipation, diverticulitis, hernia, BPH, obstructive sleep apnea, neuropathy, cataracts)
ED Past Surgical History: Orthopedic and Urological
Social History
Personal:
Living: with family
Review of Systems
<Zev Thakur MD, Resident - Last Filed: 06/14/25 00:30>
Review of Systems
Allergies reviewed?: Yes
All Other Systems: ROS reviewed and negative except as documented in HPI and ROS
Phy Exam
<Zev Thakur MD, Resident - Last Filed: 06/14/25 00:30>
General Physical Exam
General Presentation: well appearing and no apparent distress
General Skin: warm and dry
General Mental: alert
Cardiovascular Exam
Cardiovascular Exam: regular rate/rhythm and no edema
Pulmonary Exam
Pulmonary Exam: lungs clear and no respiratory distress
Gastrointestinal Exam
Gastrointestinal Exam: normal bowel sounds, non tender, soft and non distended
Neurological Exam
Neurological Exam: alert and oriented x3
Musculoskeletal Exam
Musculoskeletal Exam: full ROM
Skin Exam
Skin Exam: other (bilateral lower extremities- firm, swollen, non pitting, dry, tender, erythematous, distal pulses 2+ )
Scores
<Zev Thakur MD, Resident - Last Filed: 06/14/25 00:30>
Heart Failure Risk
Heart Failure Risk Score: Not Applicable
Course
<Zev Thakur MD, Resident - Last Filed: 06/14/25 00:30>
Orders/Labs/Results
Orders:
Orders
06/13/25 18:05
BNP [NT-proBNP] Urgent
Complete Blood Count/With Diff Urgent
Comprehensive Metabolic Panel Urgent
06/13/25 19:57
Trimethobenzamide [Tigan] 200 mg IM NOW STA
06/13/25 20:53
Venous Doppler Lwr Ext Bilat [US Periph Venous LOWER Ext Héctor] Urgent
Comment:
Reason For Exam: pain in right leg
Abnormal Lab Results
06/13/25
18:05
RBC 4.06 L 10^6/uL
(4.70-6.10)
Hgb 12.4 L g/dL
(13.0-18.0)
Hct 36.3 L %
(39.0-52.0)
Absolute Monos (auto) 0.8 H 10^3/uL
(0.1-0.6)
06/13/25 18:05
06/13/25 18:05
Vital Signs
Initial and Last Documented VS:
Initial Vital Signs
Temp Pulse Resp BP Pulse Ox
98.0 F 76 20 190/89 97
06/13/25 17:57 06/13/25 17:57 06/13/25 17:57 06/13/25 17:57 06/13/25 17:57
Last Documented Vital Signs
Temp Pulse Resp BP Pulse Ox
98.0 F 64 17 121/65 98
06/13/25 17:57 06/13/25 23:00 06/13/25 22:08 06/13/25 23:00 06/13/25 23:00
Roblt;Joesph Rodriguez, DO - Last Filed: 06/13/25 23:22>
Orders/Labs/Results
Orders:
Orders
06/13/25 18:05
BNP [NT-proBNP] Urgent
Complete Blood Count/With Diff Urgent
Comprehensive Metabolic Panel Urgent
06/13/25 19:57
Trimethobenzamide [Tigan] 200 mg IM NOW STA
06/13/25 20:53
Venous Doppler Lwr Ext Bilat [US Periph Venous LOWER Ext Héctor] Urgent
Comment:
Reason For Exam: pain in right leg
Abnormal Lab Results
06/13/25
18:05
RBC 4.06 L 10^6/uL
(4.70-6.10)
Hgb 12.4 L g/dL
(13.0-18.0)
Hct 36.3 L %
(39.0-52.0)
Absolute Monos (auto) 0.8 H 10^3/uL
(0.1-0.6)
06/13/25 18:05
06/13/25 18:05
Vital Signs
Initial and Last Documented VS:
Initial Vital Signs
Temp Pulse Resp BP Pulse Ox
98.0 F 76 20 190/89 97
06/13/25 17:57 06/13/25 17:57 06/13/25 17:57 06/13/25 17:57 06/13/25 17:57
Last Documented Vital Signs
Temp Pulse Resp BP Pulse Ox
98.0 F 64 17 121/65 98
06/13/25 17:57 06/13/25 23:00 06/13/25 22:08 06/13/25 23:00 06/13/25 23:00
<Zev Thakur MD, Resident - Last Filed: 06/14/25 00:30>
MDM/Problems Addressed
Differential Diagnosis Includes:
DVT, cellulitis, lymphangitis, chronic venous insufficiency,
MDM/Problems Addressed:
Patient is afebrile. BP is 190/89.
CBC- hgb is 12.4 but otherwise unremarkable
CMP-unremarkable
Venous doppler u/s- no DVT, rt lower leg hematoma
Will discharge patient home with Doxycycline to treat infection. Advised on resting the affected extremity.
<Zev Thakur MD, Resident - Last Filed: 06/14/25 00:30>
*Pulse Oximetry
SaO2: 97
Oxygen Mode of Delivery: Room air
Patient hypoxic: no
*Critical Care Note
Total Time (30-74mins, 75-104mins- exclusive of procedures): Not Applicable
ED Attending Note
<Zev Thakur MD, Resident - Last Filed: 06/14/25 00:30>
-
Portions of this chart may have been created with voice recognition software.� Occasional wrong word or��sound alike� substitutions may have occurred due to the inherent limitations of voice recognition software.
<Joesph Rodriguez, DO - Last Filed: 06/13/25 23:22>
ED Attending Note
Patient seen and examined by attending physician: Yes
I performed a history and physical exam of patient and discussed management with resident, I reviewed resident's note and agree with documented findings and plan of care.: Yes
ED Attending Note:
I have reviewed and agree with history treatment plan by Zev Thakur MD. My exam revealed
Physical Exam
General: no apparent distress, not acutely ill
Neck: supple. no meningeal signs. normal posterior pharynx
Heart: s1/s2 regular rate and rhythm, no murmur. equal radial
pulses.
HEENT: Pupils equal round reactive to light, EOMI
Lungs: no acute respiratory distress. clear bilaterally
Abdomen: normal bowel sounds. not tender. no CVAT
Neuro: alert and oriented. no focal neurological deficits cranial nerves II through XII intact
Skin: Right lower leg erythema
Psychiatric: well kept. interactive and cooperative
Extremities: Bilateral tibial edema. no calf tenderness. negative homans. good distal pulses
84-year-old male with bilateral lower extremity edema right lower leg hematoma, will treat infection. No signs of toxic epidermal necrolysis, or serious deep space infection. Patient stable for discharge.
Discharge Plan
Departure
Patient Disposition: Home (Routine Discharge)
Date of Disposition: 06/13/25
Time of Disposition: 23:18
Patient with high blood pressure during this ER visit?: Yes
Condition: Good
Discharge Problem:
Lymphedema of both lower extremities, Hematoma of right lower leg
Instructions: Dependent Edema (DC), BLOOD PRESSURE, Hematoma
Prescriptions:
New
doxycycline hyclate 100 mg capsule
100 mg PO BID Qty: 14 0RF
No Action
atorvastatin 40 MG tablet
40 mg PO QPM
triamterene-hydrochlorothiazid 37.5-25 mg Tablet
1 tab PO DAILY
fluticasone propionate 50 mcg/actuation [place],Suspension
2 spray INTRANASAL HS
lisinopril 2.5 mg Tablet
2.5 mg PO BID
metformin 500 mg Tablet
500 mg PO QPM
aspirin 81 mg Tablet,Delayed Release (Dr/Ec)
81 mg PO DAILY
Multivitamin 50 Plus Tablet
1 tab PO DAILY
Glucosamine Complex-MSM Capsule
1 cap PO DAILY
alfuzosin 10 mg Tablet Extended Release 24 Hr
10 mg PO HS
omega 8-yvr-evk-fish oil [Fish Oil] 1,200 (144-216) mg Capsule
1 cap PO DAILY
cholecalciferol (vitamin D3) [Vitamin D3] 25 mcg (1,000 unit) Tablet
25 mcg PO DAILY
acetaminophen [acetaminophen] 325 mg tablet
650 mg PO Q6HPRN PRN (Reason: mild pain) Qty: 14 0RF
ibuprofen 600 mg tablet
600 mg PO Q6H PRN (Reason: pain) Qty: 14 0RF
sulfamethoxazole-trimethoprim [Bactrim DS] 800-160 mg tablet
1 tab PO BID Qty: 10 0RF
Referrals:
Chapin Gaytan MD [Family Provider, Family Practice] - Call in 1-3 days for appt
Interventions
Interventions:
*Risk Screen - Suicide Last Done: 06/13/25 21:30
*General Assessment Last Done: 06/13/25 17:57
*Neglect/Abuse Screening Last Done: 06/13/25 21:30
*ED COVID-19 Vaccine History Last Done: 06/13/25 21:30
*ED Influenza Vaccine History Last Done: 06/13/25 21:30
*Nursing Disposition Last Done: 06/13/25 23:25
ED- Cardiac Assessment Last Done: 06/13/25 21:30
ED- Pulmonary Assessment Last Done: 06/13/25 21:30
ED-Skin Assessment Last Done: 06/13/25 21:30
Discharge Date and Time
Discharge Date/Time: 06/13/25 23:25
Print Language: [place]
[2025-06-13 20:54] VITALS: BP 139/69
[2025-06-13 21:00] VITALS: BP 131/67
[2025-06-13 22:08] VITALS: BP 144/80
[2025-06-13 22:50] VITALS: BP 109/69
[2025-06-13 23:00] VITALS: BP 121/65
== END 2025-06-13 23:25 | disposition home or self-care (01) ==
LOC: EMR 17:52
PROVIDERS: Emergency Medicine; EMERGENCY PHYSICIAN Emergency Medicine; FAMILY PHYSICIAN Family Medicine
DX: I89.0 Lymphedema, not elsewhere classified (principal); S80.11XA Contusion of right lower leg, initial encounter; I10 Essential (primary) hypertension; E78.00 Pure hypercholesterolemia, unspecified; G47.33 Obstructive sleep apnea (adult) (pediatric); N40.0 Benign prostatic hyperplasia without lower urinary tract symptoms; G62.9 Polyneuropathy, unspecified; Z79.82 Long term (current) use of aspirin; X58.XXXA Exposure to other specified factors, initial encounter
CPT/HCPCS: 99284; 80053; 83880; 85025; 93970

== ENCOUNTER → 2025-06-22 14:49 | Outpatient (REF) | payer MEDICARE, SELFPAY | LOC: HWEVLT 14:49 | PROVIDERS: ATTENDING PHYSICIAN Radiology Vascular & Interventional Radiology | DX: I83.893 Varicose veins of bilateral lower extremities with other complications (principal) | CPT/HCPCS: 93970 ==

== ENCOUNTER → 2025-06-28 12:27 | Outpatient (REF) | payer MEDICARE, SELFPAY | LOC: WOUND 12:27 | PROVIDERS: ATTENDING PHYSICIAN Surgery; FAMILY PHYSICIAN Family Medicine | DX: I87.313 Chronic venous hypertension (idiopathic) with ulcer of bilateral lower extremity (principal); L97.219 Non-pressure chronic ulcer of right calf with unspecified severity; L97.229 Non-pressure chronic ulcer of left calf with unspecified severity; I10 Essential (primary) hypertension; I25.10 Atherosclerotic heart disease of native coronary artery without angina pectoris; Z98.890 Other specified postprocedural states | CPT/HCPCS: 99213 ==

== ENCOUNTER 2025-07-05 13:37 | Outpatient (REF) | payer MEDICARE, SELFPAY | END 2025-07-05 23:59 | disposition home or self-care (01) | LOC: WOUND 13:37 | PROVIDERS: ATTENDING PHYSICIAN Surgery; FAMILY PHYSICIAN Family Medicine | DX: I87.313 Chronic venous hypertension (idiopathic) with ulcer of bilateral lower extremity (principal); L03.116 Cellulitis of left lower limb; L97.219 Non-pressure chronic ulcer of right calf with unspecified severity; L97.229 Non-pressure chronic ulcer of left calf with unspecified severity; I10 Essential (primary) hypertension; I25.10 Atherosclerotic heart disease of native coronary artery without angina pectoris; Z98.890 Other specified postprocedural states | CPT/HCPCS: G0463; 99215 ==

== ENCOUNTER 2025-07-05 20:14 | Inpatient (IN) | payer MEDICARE, SELFPAY ==
[2025-07-05 14:10] VITALS: BP 145/70
[2025-07-05 14:37] LABS: Hematocrit 37.1 % (39.0-52.0); Hemoglobin 12.3 g/dL (13.0-18.0); Mean Corp Hgb Conc. 33.2 g/dL (33.0-37.0); Mean Corpuscular Volume 90.7 fL (80.0-94.0); Nucleated Red Blood Cells % 0 % (-); Platelet Count 249 10^3/uL (130-400); Red Cell Dist. Width 12.9 % (11.5-14.5)
[2025-07-05 14:57] LABS: ALT (SGPT) 57 U/L (0-50); AST (SGOT) 54 U/L (17-59); Albumin 4.4 g/dl (3.5-5.0); Alkaline Phosphatase 74 U/L (38-126); Blood Urea Nitrogen 16 mg/dl (9-20); Calcium 9.3 mg/dl (8.4-10.2); Carbon Dioxide 34 mmol/L (22-30); Chloride 99 mmol/L (98-107); Glucose 114 mg/dl (70-99); Potassium 3.6 mmol/L (3.5-5.1); Sodium 139 mmol/L (135-145); Total Protein 7.1 g/dl (6.3-8.2); eGFR > 60.00
--- NOTE | 2025-07-05 16:42 | ED.SKININJ ---
HPI-Injury
<Yandel Aponte PA-C - Last Filed: 07/05/25 16:46>
General
Chief Complaint: Skin Problem
Source: patient
Exam Limitations: none
Time Seen by Provider: 07/05/25 16:27
History of Present Illness-Injury
Initial Injury comments:
84-year-old male with prediabetes and lymphedema history presents complaining of worsening redness and swelling to the left lower leg. He was sent in by Dr. Fontaine from the wound care center. He has been on doxycycline by mouth over the past 2
to 3 days without any relief. He denies fevers or chills. He was here recently had an ultrasound of his leg which was negative for DVT. No chest pain or shortness of breath. No other complaints at this time
Past History
<KARIN Bentley Last Filed: 07/05/25 16:46>
Past History
ED Past Medical History: HTN, Hypercholesterolemia and Other (sleep apnea, constipation, diverticulitis, hernia, BPH, obstructive sleep apnea, neuropathy, cataracts)
ED Past Surgical History: Orthopedic and Urological
Social History
Personal:
Living: with family
Phy Exam
<KARIN Bentley Last Filed: 07/05/25 16:46>
Physical Exam
Physical Exam:
General: Well-appearing male no acute respiratory distress
HEENT: Normal cephalic atraumatic
Heart: Regular rate and rhythm
Lungs: Clear no wheeze
Extremities: Pitting edema bilateral lower extremities. There is erythema with blister formation of the left lower leg spreading proximally to about the knee. This area is warm to the touch and tender
Course
<KARIN Bentley Last Filed: 07/05/25 16:46>
Orders/Labs/Results
Orders:
Orders
07/05/25 14:22
Complete Blood Count/With Diff Urgent
Comprehensive Metabolic Panel Urgent
Blood Culture Urgent
CHERIE Source: Blood/Venous
Specimen Description:
07/05/25 Dinner
1800 calorie (15 carb) Diabetic
At Your Request: Full Participation
07/05/25 16:41
Piperacillin/Tazo 3.375 Gram [Zosyn] 3.375 gram in 50 ml IV NOW
07/05/25 20:01
Admit/Transfer Patient As Directed
Co-Sign Provider:
Level of Care: Inpatient admission
Assign to:: Medical/Surgical
Physician / Group: emigdio edwards
Diagnosis: acute chronic RLE cellulitis, b/l lymphedema
Reason for Hospitalization: acute chronic RLE cellulitis, b/l lymphedema
Expected length of stay greater than two midnights?: Yes
ELOS- Estimated Length of Stay in days: 3
I certify the patient meets the requirements for IP care: Yes
Code Status As Directed
Resuscitation Status: Do not resuscitate
Reached after discussion with pt or family/Healthcare POA: Yes
Decision communicated with: per pt with present
DNR Bracelet Application ONCE
07/05/25 20:03
PRN Pain Medication Management As Directed
May give lesser potent ordered pain med per pt: Yes
preference::
Protocol:: Medication orders for pain may be administered in a
manner that supports deferring to patient preference
when the pt is:
- Requesting an ordered lesser potent pain medication.
Least to most potent pain medications are defined
as: acetaminophen < NSAID < tramadol < opioids
(morphine, oxycodone, hydromorphone).
- Requesting a lesser dose of the same medication IF
ORDERED.
- Requesting a less intrusive route of administration
if both routes are prescribed by the provider (PO <
IV).
07/05/25 20:52
Acetaminophen [Tylenol] 650 mg PO Q6HPRN PRN mild pain
Dextrose 50%-Water [Dextrose 50% Syringe] 12.5 grams IV [id number] PRN
Glucagon [GlucaGen] 1 mg IM PRN PRN
07/05/25 20:52
WOUND/OSTOMY CONSULT Routine
Reason for Consult: rle cellulitis . bilat lymphedema
Activity As Directed
Activity Level: With Assistance
Bedside Glucose Monitoring As Directed
Frequency: AC&HS
Additional Instructions:: Change to q6h if pt on TPN, tube feeding or not eating
Intake/ Output As Directed
Frequency: Per unit guidelines
Vital Signs As Directed
Frequency: Per unit guidelines
Weight As Directed
Frequency: Daily
Pt Eval And Treat Routine
Activity Level: As Tolerated
DX Deep Vein Thrombosis Video Routine
07/05/25 22:00
Piperacillin/Tazo 3.375 Gram [Zosyn] 3.375 gram in 50 ml IV Q6H
fluticasone propionate 2 spray NASAL HS
07/06/25 06:00
Complete Blood Count/With Diff IN AM
Comprehensive Metabolic Panel IN AM
Glycohemoglobin (HgbA1c) IN AM
07/06/25 07:30
Insulin Aspart Corrective Low [Novolog Flexpen-Low Resistance] See Protocol SC AC
07/06/25 08:00
Aspirin Low Dose EC [Aspir Low (Enteric Coated)] 81 mg PO DAILY
Cholecalciferol (Vitamin D3) [VITAMIN D3 (cholecalciferol)] 25 mcg PO DAILY
Furosemide [Lasix] 40 mg PO DAILY
Lisinopril [Zestril] 2.5 mg PO BID
Multivitamin [Theragran] 1 tablet PO DAILY
Triamterene/Hctz [Dyazide] 1 capsule PO DAILY
omega 2-owe-ejb-fish oil [Fish Oil] 1 cap PO DAILY
07/06/25 17:00
METFORMIN HCl [Glucophage] 500 mg PO QPM@1700
07/06/25 18:00
Atorvastatin [Lipitor] 40 mg PO QPM
Enoxaparin Sodium [Lovenox] 40 mg SC QPM
07/07/25 06:00
Complete Blood Count/With Diff IN AM
Comprehensive Metabolic Panel IN AM
07/08/25 06:00
Complete Blood Count/With Diff IN AM
Comprehensive Metabolic Panel IN AM
Abnormal Lab Results
07/05/25
14:22
RBC 4.09 L 10^6/uL
(4.70-6.10)
Hgb 12.3 L g/dL
(13.0-18.0)
Hct 37.1 L %
(39.0-52.0)
Carbon Dioxide 34 H mmol/L
(22-30)
Glucose 114 H mg/dl
(70-99)
ALT 57 H U/L
(0-50)
07/05/25 14:22
07/05/25 14:22
Vital Signs
Initial and Last Documented VS:
Initial Vital Signs
Temp Pulse Resp BP Pulse Ox
97.9 F 59 20 145/70 97
07/05/25 14:10 07/05/25 14:10 07/05/25 14:10 07/05/25 14:10 07/05/25 14:10
Last Documented Vital Signs
Temp Pulse Resp BP Pulse Ox
98.0 F 55 16 106/50 96
07/05/25 21:37 07/05/25 21:37 07/05/25 21:37 07/05/25 21:37 07/05/25 21:37
<Stefan Mckee, DO - Last Filed: 07/05/25 23:21>
Orders/Labs/Results
Orders:
Orders
07/05/25 14:22
Complete Blood Count/With Diff Urgent
Comprehensive Metabolic Panel Urgent
Blood Culture Urgent
CHERIE Source: Blood/Venous
Specimen Description:
07/05/25 Dinner
1800 calorie (15 carb) Diabetic
At Your Request: Full Participation
07/05/25 16:41
Piperacillin/Tazo 3.375 Gram [Zosyn] 3.375 gram in 50 ml IV NOW
07/05/25 20:01
Admit/Transfer Patient As Directed
Co-Sign Provider:
Level of Care: Inpatient admission
Assign to:: Medical/Surgical
Physician / Group: emigdio edwards
Diagnosis: acute chronic RLE cellulitis, b/l lymphedema
Reason for Hospitalization: acute chronic RLE cellulitis, b/l lymphedema
Expected length of stay greater than two midnights?: Yes
ELOS- Estimated Length of Stay in days: 3
I certify the patient meets the requirements for IP care: Yes
Code Status As Directed
Resuscitation Status: Do not resuscitate
Reached after discussion with pt or family/Healthcare POA: Yes
Decision communicated with: per pt with present
DNR Bracelet Application ONCE
07/05/25 20:03
PRN Pain Medication Management As Directed
May give lesser potent ordered pain med per pt: Yes
preference::
Protocol:: Medication orders for pain may be administered in a
manner that supports deferring to patient preference
when the pt is:
- Requesting an ordered lesser potent pain medication.
Least to most potent pain medications are defined
as: acetaminophen < NSAID < tramadol < opioids
(morphine, oxycodone, hydromorphone).
- Requesting a lesser dose of the same medication IF
ORDERED.
- Requesting a less intrusive route of administration
if both routes are prescribed by the provider (PO <
IV).
07/05/25 20:52
Acetaminophen [Tylenol] 650 mg PO Q6HPRN PRN mild pain
Dextrose 50%-Water [Dextrose 50% Syringe] 12.5 grams IV [id number] PRN
Glucagon [GlucaGen] 1 mg IM PRN PRN
07/05/25 20:52
WOUND/OSTOMY CONSULT Routine
Reason for Consult: rle cellulitis . bilat lymphedema
Activity As Directed
Activity Level: With Assistance
Bedside Glucose Monitoring As Directed
Frequency: AC&HS
Additional Instructions:: Change to q6h if pt on TPN, tube feeding or not eating
Intake/ Output As Directed
Frequency: Per unit guidelines
Vital Signs As Directed
Frequency: Per unit guidelines
Weight As Directed
Frequency: Daily
Pt Eval And Treat Routine
Activity Level: As Tolerated
DX Deep Vein Thrombosis Video Routine
07/05/25 22:00
Piperacillin/Tazo 3.375 Gram [Zosyn] 3.375 gram in 50 ml IV Q6H
fluticasone propionate 2 spray NASAL HS
07/06/25 06:00
Complete Blood Count/With Diff IN AM
Comprehensive Metabolic Panel IN AM
Glycohemoglobin (HgbA1c) IN AM
07/06/25 07:30
Insulin Aspart Corrective Low [Novolog Flexpen-Low Resistance] See Protocol SC AC
07/06/25 08:00
Aspirin Low Dose EC [Aspir Low (Enteric Coated)] 81 mg PO DAILY
Cholecalciferol (Vitamin D3) [VITAMIN D3 (cholecalciferol)] 25 mcg PO DAILY
Furosemide [Lasix] 40 mg PO DAILY
Lisinopril [Zestril] 2.5 mg PO BID
Multivitamin [Theragran] 1 tablet PO DAILY
Triamterene/Hctz [Dyazide] 1 capsule PO DAILY
omega 2-shr-pwq-fish oil [Fish Oil] 1 cap PO DAILY
07/06/25 17:00
METFORMIN HCl [Glucophage] 500 mg PO QPM@1700
07/06/25 18:00
Atorvastatin [Lipitor] 40 mg PO QPM
Enoxaparin Sodium [Lovenox] 40 mg SC QPM
07/07/25 06:00
Complete Blood Count/With Diff IN AM
Comprehensive Metabolic Panel IN AM
07/08/25 06:00
Complete Blood Count/With Diff IN AM
Comprehensive Metabolic Panel IN AM
Abnormal Lab Results
07/05/25
14:22
RBC 4.09 L 10^6/uL
(4.70-6.10)
Hgb 12.3 L g/dL
(13.0-18.0)
Hct 37.1 L %
(39.0-52.0)
Carbon Dioxide 34 H mmol/L
(22-30)
Glucose 114 H mg/dl
(70-99)
ALT 57 H U/L
(0-50)
07/05/25 14:22
07/05/25 14:22
Vital Signs
Initial and Last Documented VS:
Initial Vital Signs
Temp Pulse Resp BP Pulse Ox
97.9 F 59 20 145/70 97
07/05/25 14:10 07/05/25 14:10 07/05/25 14:10 07/05/25 14:10 07/05/25 14:10
Last Documented Vital Signs
Temp Pulse Resp BP Pulse Ox
98.0 F 55 16 106/50 96
07/05/25 21:37 07/05/25 21:37 07/05/25 21:37 07/05/25 21:37 07/05/25 21:37
Roblt;Yandel Aponte PA-C - Last Filed: 07/05/25 16:46>
MDM/Problems Addressed
Differential Diagnosis Includes:
Patient with worsening erythema and swelling to the left leg despite being on oral antibiotics for the past 2 days. Patient has an underlying component of lymphedema and venous stasis however there is acute cellulitis. Recent ultrasound was
negative for DVT. Will order Zosyn. Will admit to hospital for further evaluation
<Yandel Aponte PA-C - Last Filed: 07/05/25 16:46>
*Pulse Oximetry
SaO2: 97
Oxygen Mode of Delivery: Room air
Patient hypoxic: no
*Critical Care Note
Total Time (30-74mins, 75-104mins- exclusive of procedures): Not Applicable
ED Attending Note
<Yandel Aponte PA-C - Last Filed: 07/05/25 16:46>
-
Portions of this chart may have been created with voice recognition software.� Occasional wrong word or��sound alike� substitutions may have occurred due to the inherent limitations of voice recognition software.
<Stefan Mckee DO - Last Filed: 07/05/25 23:21>
ED Attending Note
Patient seen and examined by attending physician: Yes
I performed the substantive portion of visit, reviewed & personally made and approve the management plan that is documented in note by myself or DULCE.: Yes
I performed a history and physical exam of patient and discussed management with resident, I reviewed resident's note and agree with documented findings and plan of care.: Yes
ED Attending Note:
84-year-old male presents to the ER from [facility] for admission for treatment of cellulitis which has failed to improve as an outpatient. Patient reports localized discomfort to his left lower extremity, slightly greater than his right
lower extremity. He denies fevers. Vital signs reviewed, patient is awake, alert, appears no acute distress, GCS is 15, mucous membranes moist, bilateral lower extremities with 3+ edema to the knees, left lower extremity with areas of intact
vesicle along the proximal medial aspect of the lower leg, circumferential induration with blanching erythema present left lower extremity with swelling extending to the foot, 2+ DP pulse present bilateral feet. IV antibiotics ordered by physician
speech language pathology assistant. Physician speech language pathology assistant was also able to speak with the hospitalist to get patient admitted. Patient agrees with plan and has no questions at the current time.
Discharge Plan
Departure
Patient Disposition: Admit
Date of Disposition: 07/05/25
Time of Disposition: 16:44
Presentation/result/management discussed w/ accepting MD/DO: Hospitalist
Discharge Problem:
Cellulitis
Interventions
Interventions:
*Risk Screen - Suicide Last Done: 07/05/25 14:10
*General Assessment Last Done: 07/05/25 14:10
*Neglect/Abuse Screening Last Done: 07/05/25 14:10
*ED- Fall Risk Assessment Last Done: 07/05/25 17:01
*ED COVID-19 Vaccine History Last Done: 07/05/25 17:01
*ED Influenza Vaccine History Last Done: 07/05/25 17:01
*Nursing Disposition Last Done: 07/05/25 20:54
ED-Skin Assessment Last Done: 07/05/25 17:01
Discharge Date and Time
Discharge Date/Time: 07/05/25 20:54
[2025-07-05] MEDS: ZOSYN 50 IV ×2 (16:57→21:45)
[2025-07-05 17:00] VITALS: BMI 29.7
[2025-07-05 17:05] VITALS: BP 145/70
--- NOTE | 2025-07-05 19:32 | HPS.HSE ---
Family Physician
-
Family Physician: Imelda Gandhi
Chief Complaint
-
redness swelling lle
History of Present Illness
84-year-old male complaining of worsening redness and swelling to his left lower leg with history of lymphedema. He was sent in by Dr. Tobin from wound care as he has been on doxycycline over the past 2 to 3 days without any improvement. He had
ultrasound negative for DVT. He reports seeing cardiology this a.m. due to wound care wanting him to restart Lasix 40 mg daily x 3 to 4 days. This was okay with cardiology CBC this a.m. He reports he has taken on and off started 3 weeks ago but
reports his blood pressure was dropping too low so he stopped it. He wears Jobst stockings 22 hours a day then bilateral leg pumps for 2 hours a day due to chronic lymphedema. He has +3 pitting edema with circumferential erythema up to knee to his
left lower extremity with areas of blistering. He has +2 edema right lower extremity with crusting of the skin. He denies fever, chills, chest pain, palpitations, cough, abdominal pain, nausea, vomiting, diarrhea, urinary symptoms.
He has past medical history DM 2, HTN, HLD, chronic lymphedema, right CEA with patch angioplasty 02/11/2023,Peripheral neuropathy
BPH,KILEY on CPAP ,M�ni�re's disease, Thyroid nodule ,Robotic right inguinal hernia repair with mesh 07/15/2024
Medical History
Past Medical History
Past Medical History: Reports Other
Additional Past Medical History:
DM 2
HTN
HLD
chronic lymphedema
Peripheral neuropathy
BPH
KILEY on CPAP
M�ni�re's disease
Thyroid nodule
right CEA with patch angioplasty 02/11/2023
Robotic right inguinal hernia repair with mesh 07/15/2024
Past Surgical History: Reports Other
Additional Past Surgical History:
right CEA with patch angioplasty 02/11/2023
Robotic right inguinal hernia repair with mesh 07/15/2024
Social History
Tobacco: Non-smoker
Alcohol: Occasional
Drug: None
Personal:
Living: With Family
Employment: Retired
Family History
Family History: Not pertinent
Allergies / Home Medications
Allergies reflects when Allergies were last updated in [employer].
Home Medications with original date entered in [employer]
Allergy/Medication List:
Allergies
Allergy/AdvReac Type Severity Reaction Status Date / Time
pollen extracts Allergy hayfever Verified 07/05/25 14:12
cephalexin (From Keflex) AdvReac Nausea / Verified 07/05/25 14:12
Vomiting
Home Medications
atorvastatin 40 mg tablet 40 mg PO QPM High Cholesterol 06/02/17
fluticasone propionate 50 mcg/actuation nasal spray,suspension 2 spray intranasal HS Allergies 01/30/23
lisinopril 2.5 mg tablet 2.5 mg PO BID HTN 01/30/23
metformin 500 mg tablet 500 mg PO QPM Diabetes 01/30/23
triamterene 37.5 mg-hydrochlorothiazide 25 mg tablet 1 tab PO DAILY Blood Pressure 01/30/23
aspirin 81 mg tablet,delayed release 81 mg PO DAILY 07/12/24
cholecalciferol (vitamin D3) 25 mcg (1,000 unit) tablet (Vitamin D3) 25 mcg PO DAILY 07/12/24
srhlzltqiih-hel-gygpyqdzi-vitC capsule (Glucosamine Complex-MSM capsule) 1 cap PO DAILY 07/12/24
eburxpgygtsf-sbeblndt-pczqqk tablet (Multivitamin 50 Plus tablet) 1 tab PO DAILY 07/12/24
omega 8-zay-dlu-fish oil 1,200 mg (144 mg-216 mg) capsule (Fish Oil) 1 cap PO DAILY 07/12/24
acetaminophen 325 mg tablet 650 mg (2 x 325 mg) PO Q6HPRN PRN mild pain #14 tabs 07/15/24
ibuprofen 600 mg tablet 600 mg PO Q6H PRN pain #14 tabs 07/15/24
doxycycline hyclate 100 mg capsule 100 mg PO BID #14 caps 06/13/25
furosemide 40 mg tablet 40 mg PO DAILYPRN PRN leg edema 07/05/25
Review of Systems
-
History Source: Patient and Family ( at bedside)
A 12 point ROS was completed and negative except as noted: Yes
Constitutional: Denies Fever, Fatigue or Chills
EENT: Denies Sore Throat
Respiratory: Denies Cough or Trouble Breathing
Cardiac: Denies Chest Pain, Diaphoresis, Palpitations or Syncope
Abdomen/GI: Denies Abdominal Pain, Nausea, Vomiting or Diarrhea
: Denies Dysuria, Frequency, Flank Pain or Incontinence
Musculoskeletal: Reports Edema (He has +3 pitting edema with circumferential erythema up to knee to his left lower extremity with areas of blistering. He has +2 edema right lower extremity with crusting of the skin. ); Denies Joint Pain
Skin: Reports Other (He has +3 pitting edema with circumferential erythema up to knee to his left lower extremity with areas of blistering. He has +2 edema right lower extremity with crusting of the skin. ); Denies Itching
Neurological: Denies Dizzy, Headache or Weakness
Endocrine: Reports No Symptoms
Hematologic/Lymphatic: Reports No Symptoms
Psych: Reports Calm
Physical Exam
Vital Signs
Vital Signs
Temp Pulse Resp BP Pulse Ox
97.9 F 60 18 145/70 98
07/05/25 17:05 07/05/25 17:05 07/05/25 17:05 07/05/25 17:05 07/05/25 17:05
Physical Exam
General: Comfortable and Conversant; No Fever or Chills
HEENT: NormoCephalic, Anicteric, Moist mucous membranes, PERRLA, [place] Conjunctivae and No Ptosis
Respiratory: Clear; No Wheezes, Rales or Rhonchi
Cardiac: S1/S2, Regular Rhythm and Peripheral Edema (He has +3 pitting edema with circumferential erythema up to knee to his left lower extremity with areas of blistering. He has +2 edema right lower extremity with crusting of the skin. ); No
Murmur, Rub or Gallop
Breast: Deferred by me
GI: Soft, Non Distended, Normal Bowel Sounds, Organomegaly and No Hepatosplenomegaly
Rectal: Deferred by Provider
Genito-urinary: Deferred by me
Musculoskeletal: No Clubbing, No Cyanosis, Edema, Left Lower Extremity (He has +3 pitting edema with circumferential erythema up to knee to his left lower extremity with areas of blistering. ) and Edema, Right Lower Extremity ( He has +2 edema
right lower extremity with crusting of the skin.); No Edema, Left Upper Extremity or Edema, Right Upper Extremity
Skin: Warm and Dry; No Rash
Neuro: AO x 3, No Motor Deficits, Nonfocal/grossly intact, Cranial Nerves Intact and No Sensory Deficits; No Slurred Speech, Facial Droop, Tremors or Sedated
Psych: Calm
Laboratory Results
-
07/05/25 14:22
07/05/25 14:22
Laboratory Results
Total Bilirubin 1.2 mg/dl (0.2-1.3) 07/05/25 14:22
AST 54 U/L (17-59) 07/05/25 14:22
ALT 57 U/L (0-50) H 07/05/25 14:22
Alkaline Phosphatase 74 U/L (38-126) 07/05/25 14:22
Data Reviewed
-
Lab Data: Labs Reviewed by me
Impression/Plan
-
Impression/plan:
Admit to MedSurg
#Acute on chronic LEFT lower extremity cellulitis failure outpatient ABX
#History of chronic bilateral leg lymphedema
#Peripheral neuropathy
Recent 3-day course doxycycline with failure
- Ultrasound negative for DVT
- IV Zosyn given in ER
- Consult wound care
#DM 2
Accu-Cheks with SSI check HgbA1c
- Continue metformin 500 mg every afternoon
#HTN
BP 145/70
Continue lisinopril 2.5 mg twice daily, triamterene/HCTZ 1 tab daily
#HLD
- Continue atorvastatin 40 mg every afternoon
#BPH
Patient reports alfuzosin has been on hold for couple weeks
#KILEY on CPAP
Uses nasal CPAP unsure of setting
Other PMH:
Right CEA with patch angioplasty 02/11/2023
Robotic right inguinal hernia repair with mesh 07/15/2024
M�ni�re's disease
Thyroid nodule is being monitored by ENT
DVT prophylaxis
Subcu Lovenox
Full code
--- NOTE | 2025-07-05 20:45 | PTCARENOTE ---
Patient received from ED via stretcher. Patient pulled over from stretcher. Patient AAOx3, vitals stable, and no complaints of pain. Oriented to room and call zayas within reach.
--- NOTE | 2025-07-05 20:46 | W.PN.UPDATE ---
Update Note
Progress Note Update
This note serves as an addendum to the H&P by operations administrator DULCE� Denita Joshua
HPI
84M pw worsening redness and swelling to his left lower leg HX b/l Orin Lymphedema
Known to wound care center (Dr. Tobin ) currently on Doxycycline for t 2 to 3 days without any improvement
Currently on PO Lasix [address] Tobin bur stopped due to Low BP.
- Sono NEG for DVT
- wears Jobst stockings 22 hours per day then B/L leg pumps for 2 hours a day due to chronic lymphedema
ROS:
denies fever, chills, chest pain, palpitations, cough, abdominal pain, nausea, vomiting, diarrhea, urinary symptoms.
PHX
DM 2,
HTN, HLD
R CEA with patch angioplasty 02/11/2023
Peripheral neuropathy
BPH
KILEY on CPAP
M�ni�re's disease
Thyroid nodule
Robotic right inguinal hernia repair with mesh 07/15/2024
Relevant VS
Temp Pulse Resp BP Pulse Ox
97.9 F 60 18 145/70 98
07/05/25 17:05 07/05/25 17:05 07/05/25 17:05 07/05/25 17:05 07/05/25 17:05
PE
Not toxic looking
Conversant , appropriates
Lt ORIN: +3 pitting edema. Well demarcated circumferential erythema up to knee with areas of blistering
Rt Orin: 2 +with crusting of the skin +2 edema
Skin: Warm and Dry
Relevant data�
06/13/25 07/05/25
18:05 14:22
WBC 6.4
Hgb 12.4 L 12.3 L
BUN 16
Creatinine 0.7
eGFR > 60.00
AST 54
ALT 57 H
06/22/25 B/l Orin US
1. No saphenous insufficiency demonstrated on either side. Multiple prior ablations as detailed above.
2. No evidence of deep venous insufficiency on either side.
NO PRIOR hospitalist admission:
ASSESSMENT & PLAN
Acute on chronic Lt Leg cellulitis failed OP ABx
HX chronic Orin leg lymphedema
Peripheral neuropathy
Failed OP PO doxycycline
HX Keflex allergy
- Empiric IV Zosyn - so far tolerating
- Wound care consult
T2DM
- ISS low
- check HgbA1c
- c/w DANCE [employer]UME DESIGNER metformin
Essential HTN
- c/w DANCE [employer]UME DES[employer]ER lisinopril and triamterene/HCTZ 1 tab daily
HLD
- c/w DANCE CO[employer]UME DES[employer]ER Atorvastatin
BPH HX
KILEY on CPAP HS
- Uses nasal CPAP unsure of setting
Other PMH:
R CEA with patch angioplasty 02/11/2023
Robotic R IH repair with mesh 07/15/2024
M�ni�re's disease
Thyroid nodule is being monitored by ENT
DVT Px: LMWH
Full code
IP MS
[2025-07-05 21:01] VITALS: BMI 31.1
[2025-07-05 21:37] VITALS: BP 106/50
[2025-07-05 21:44] LABS: Glucose - Point of Care 126 mg/dl (70-99)
[2025-07-05 22:30] VITALS: PULSE 50
[2025-07-05 23:27] VITALS: BP 114/50
[2025-07-06] MEDS: ZOSYN 50 IV ×2 (03:43→10:43)
[2025-07-06 06:00] VITALS: BMI 30.9
[2025-07-06 07:00] VITALS: BP 123/61
[2025-07-06 07:48] LABS: Hematocrit 32.4 % (39.0-52.0); Hemoglobin 10.9 g/dL (13.0-18.0); Mean Corp Hgb Conc. 33.6 g/dL (33.0-37.0); Mean Corpuscular Volume 90.5 fL (80.0-94.0); Nucleated Red Blood Cells % 0 % (-); Platelet Count 204 10^3/uL (130-400); Red Cell Dist. Width 13.0 % (11.5-14.5)
[2025-07-06 08:28] LABS: ALT (SGPT) 46 U/L (0-50); AST (SGOT) 42 U/L (17-59); Albumin 3.4 g/dl (3.5-5.0); Alkaline Phosphatase 65 U/L (38-126); Blood Urea Nitrogen 12 mg/dl (9-20); Calcium 8.7 mg/dl (8.4-10.2); Carbon Dioxide 29 mmol/L (22-30); Chloride 104 mmol/L (98-107); Estimated Creatinine Clearance 99 ml/min; Glucose 105 mg/dl (70-99); Potassium 3.7 mmol/L (3.5-5.1); Sodium 139 mmol/L (135-145); Total Protein 5.7 g/dl (6.3-8.2); eGFR > 60.00
--- NOTE | 2025-07-06 08:35 | W.PN.HOSP.TC ---
Addendum entered and electronically signed by Celestine Luna MD 07/06/25 21:55:
Attending Addendum-
I saw and evaluated the patient. I reviewed the resident�s note and agree with findings and plan as documented in the resident�s note. Sub: continues to have pain in LLE. States more red than usual. Dusty fevers chills. Full 12 point ROS reviewed
and negative except as documented Exam: Vitals reviewed in chart GEN-NAd heart RRR Lungs clear abd soft LE B/L LE venous stais changes with lymphedema LLE red warm painful extend to knee, pos DP B/L
Plan:
#Acute LEFT lower extremity cellulitis, failure outpatient ABX enhanced by lymphedema
#History of chronic bilateral leg lymphedema
#Peripheral neuropathy
- Recent 3-day course doxycycline-no improvement
- Ultrasound negative for DVT
- narrow zosyn-> ancef (allergy was nausea and vomiting x 1 from Keflex pill)
- Consult wound care
#DM 2
- Accu-Cheks with SSI check HgbA1c
- Continue metformin
#HTN
-Continue lisinopril and triamterene/HCTZ
-stable monitor
#HLD
- Continue atorvastatin
#BPH
-restart alfuzosin
#KILEY on CPAP
-cont home CPAP
Other PMH:
Right CEA with patch angioplasty 02/11/2023
Robotic right inguinal hernia repair with mesh 07/15/2024
M�ni�re's disease
Thyroid nodule is being monitored by ENT
DVT prophylaxis
Subcu Lovenox
Code-Full code->DNR
Dipso DC in 24 to 48 hours
ACP
Patient consented to discuss, was alone, time spent explanation of advance directives, changes in health status, patient�s health care wishes if the patient becomes unable to make health decisions, goals of care, code status, and prognosis 'i dont
want any resuscitation' - 16 minutes
Time spent coordinating care, review of plan of care with resident, personally reviewed previous records in EMR, med rec, labs, radiology, d/w nursing, total time documented is exclusive of any additional time listed that was spent in advance care
planning discussion -�51 minutes
Original Note:
Today's Communication/Plan
-
Switched Zosyn to cefazolin 1 g IV every 8 hours.
Wound care saw the patient and changed left wound dressing and bilateral compression wrapping.
Assessment / Plan
Assessment / Plan
Impression
84M pw worsening redness and swelling to his left lower leg HX b/l Orin Lymphedema
Known to wound care center (Dr. Tobin). On Doxycycline for 2 to 3 days without any improvement
Currently on PO Lasix [address] Tobin bur stopped due to Low BP.
- Sono NEG for DVT
- wears Jobst stockings 22 hours per day then B/L leg pumps for 2 hours a day due to chronic lymphedema
Plan
Acute on chronic Lt Leg cellulitis failed OP ABx
HX chronic Orin leg lymphedema
Peripheral neuropathy
- Wound care consult
� Furosemide 40 mg p.o. daily started 07/06/2025
� Blood culture pending
ABX regimen
�Patient stated that OP PO doxycycline 2 to 3 days did not help
�Patient believes that he had a reaction to Keflex of nausea and vomiting. He was prescribed Keflex after a orthopedic surgery. He already felt nauseous after eating. He took Keflex and vomited 30 minutes later.
� Patient states he does not have knowledge of a prior prior MRSA infection
� He has tolerated cefazolin twice in the past per pharmacist records.
- Empiric IV Zosyn started in ED and discontinued. Switched to Ancef (cefazolin) 1 g Q8h IV 07/06/2025�
T2DM
HgbA1c 5.6%
- c/w FUR GLAZER metformin 500 mg every afternoon 5 PM
- ISS low
Essential HTN
- c/w FUR GLAZER lisinopril 5 mg twice daily and triamterene/HCTZ 1 tab daily
HLD
- c/w FUR GLAZER Atorvastatin 40 mg every afternoon
BPH HX
� Alfuzosin held for couple weeks
KILEY on CPAP HS
- Uses nasal CPAP. Unsure of setting
Anemia, normocytic
Likely due to cellulitis
� Hb 10.9. 12.3 on admission. Baseline 13
Other PMH:
R CEA with patch angioplasty 02/11/2023
Robotic R IH repair with mesh 07/15/2024
M�ni�re's disease
Thyroid nodule is being monitored by ENT
DVT Px: LMWH
Diet: 1800 marine (15 carb) diabetic
Full code
Anticipated Discharge: 24 - 48 hours
Subjective/Interval History
-
Date of Service: July 06, 2025
No acute events overnight. Patient endorses pain in his left lower extremity where his erythema is. He is not sure whether his rash has improved since starting the Zosyn yesterday.
Objective Data
-
Labs:
Laboratory Results
07/06/25
07:00
WBC 5.0
Hgb 10.9 L
Hct 32.4 L
Plt Count 204
Sodium 139
Potassium 3.7
Chloride 104
Carbon Dioxide 29
BUN 12
Creatinine 0.7
Glucose 105 H
Calcium 8.7
Total Bilirubin 1.2
AST 42
ALT 46
Alkaline Phosphatase 65
Vital Signs:
Vital Signs
Temp Pulse Resp BP Pulse Ox
97.8 F 54 16 114/50 98
07/05/25 23:27 07/05/25 23:27 07/05/25 23:27 07/05/25 23:27 07/05/25 23:27
I&O
07/05/25 07/06/25 07/07/25
06:59 06:59 06:59
Intake Total 620 / 620
Output Total 150 / 150
Balance 470 / 470
Review of Systems
-
History Source: Patient
All other systems: Reviewed and negative
Physical Exam
-
General: Well Developed, Well Nourished, No Apparent Distress, Comfortable and Conversant
HEENT: Normocephalic, Atraumatic, Anicteric, Nose Appears Normal and Ears Appear Normal
Respiratory: Clear to Auscultation
Cardiac: Regular Rhythm and S1/S2
GI: Soft, Nondistended, Normal Bowel Sounds and Tender (Mild tenderness to palpation in the upper abdomen)
Musculoskeletal: No Clubbing, No Cyanosis, Edema, Right Lower Extrem and Edema, Left Lower Extrem
Skin: Warm and Rash (Circumferential erythema up to proximal tibia on left leg, which is also warmer to touch than right lower leg)
Neuro: Awake and Alert
Psych: Calm
[2025-07-06] MEDS: ZESTRIL PO ×2 (08:39→20:10)
[2025-07-06] MEDS: DYAZIDE 1 CAPSULE PO (08:39)
[2025-07-06] MEDS: VITAMIN D3 (cholecalciferol) 25 MCG PO (08:39)
[2025-07-06] MEDS: LASIX 40 MG PO (08:40)
[2025-07-06] MEDS: THERAGRAN 1 TABLET PO (08:40)
[2025-07-06] MEDS: ASPIR LOW (ENTERIC COATED) 81 MG PO (08:40)
--- NOTE | 2025-07-06 09:44 | WOUNDNOTE ---
BILATERAL LOWER EXTREMITIES
--- NOTE | 2025-07-06 09:45 | WOUNDNOTE ---
LEFT MEDIAL LOWER LEG
--- NOTE | 2025-07-06 09:45 | WOUNDNOTE ---
LEFT ANTERIOR LOWER LEG
--- NOTE | 2025-07-06 09:46 | WOUNDNOTE ---
LEFT LATERAL LOWER LEG
--- NOTE | 2025-07-06 09:46 | WOUNDNOTE ---
RIGHT MEDIAL LOWER LEG
--- NOTE | 2025-07-06 09:46 | WOUNDNOTE ---
RIGHT ANTEROLATERAL LOWER LEG
--- NOTE | 2025-07-06 09:47 | WOUNDNOTE ---
SACRAL COCCYX/RIGHT BUTTOCK/RIGHT POSTERIOR THIGH
[2025-07-06 09:52] LABS: Glycohemoglobin (HgbA1c) 5.6 % (4.0-5.9)
--- NOTE | 2025-07-06 10:13 | WOUNDNOTE ---
[facility] RN note: Patient admitted with cellulitis of L leg. Sent from our wound care center.
See H&P for complete history. Lives with family.
PMH: He has past medical history DM 2, HTN, HLD, chronic lymphedema, right CEA with patch angioplasty 02/11/2023,Peripheral neuropathy
BPH,KILEY on CPAP ,M�ni�re's disease, Thyroid nodule ,Robotic right inguinal hernia repair with mesh 07/15/2024
Wound Location and type/assessment: Patient admitted with: L leg remains red, scant weeping distal anterior leg, +3 edema. R lower leg with dry scabs, less edema. Patient uses Farrow wraps at home and lymphedema pumps. + palpable pedal pulses,
heels intact. Patient able to turn to side, mild MASD in gluteal cleft, blanchable red.
Appetite: Good.
Pressure redistribution devices in place: On Air mattress, brought in recliner chair to use to elevate legs when oob.
Plan: Local wound care applied and Tubigrip size G both legs knee high. Applied Vaseline to both legs after washing with soap and water, will order mineral oil to start tomorrow. Pillow placed under calves.
Will confirm orders with hospitalist and updated nurse. Updated care plan and will follow as needed.
Note to case management of equipment requested for discharge: None.
Recommend follow up at wound care center upon discharge.
[2025-07-06 11:12] VITALS: BP 155/70
[2025-07-06 11:52] LABS: Glucose - Point of Care 118 mg/dl (70-99)
--- NOTE | 2025-07-06 12:08 | CM ---
Addendum entered by Mary Jane Flynn 07/06/25 12:22:
Patients DME in the home consists of walker, rollator, multiple canes, grab bars to enter home
Original Note:
CM reviewed chart, patient seen in chair, initial assessment completed.
Patient is an 84-year-old male complaining of worsening redness and swelling to his left lower leg with history of lymphedema.
Patient resides with his in a multiple story home, [address] + community, about two steps to enter.
Patient denies VN/SNF- was previously working with [facility] for outpatient therapy.
CM discussed PT recommendations of home health, patient would like to consider it, open to idea.
PCP confirmed Imelda Gandhi, [facility], confirms prescription coverage through [facility], [facility] also utilizes [facility].
Patient denies insecurities at home.
CM will continue to follow for all d/c planning needs.
Plan; home with VN likely
[2025-07-06] MEDS: ANCEF 5 IV ×2 (14:44→21:26)
--- NOTE | 2025-07-06 14:59 | PN.CDI ---
CDI
- -
CDI:
Physician Documentation Request
Admit Date: 07/05/25 20:14
Dear Doctor Jeremy and Dr. Cassidy,
Please review the following and provide your response in the progress notes.
Clinical Indicators:
ED, 07/05
#...worsening erythema and swelling to the left leg despite being
#...on oral antibiotics for the past 2 days.
#...underlying component of lymphedema and venous stasis
#...however there is acute cellulitis.
PN, 07/06
#Acute on chronic LEFT lower extremity cellulitis failure outpatient ABX
#History of chronic bilateral leg lymphedema
#Peripheral neuropathy
#...Recent 3-day course doxycycline with failure
Based on the above and your clinical assessment, please clarify the relationship, if any, between these conditions:
Multifactorial, Left lower extremity cellulitis is enhanced by/related to/associated with/due to diabetes, lymphedema and /or venous stasis.
Left lower extremity cellulitis, only
Other (please specify)
Use of terms such as suspected, likely, concern for, or probable (associated with a specific diagnosis that is being evaluated, monitored, or treated as if it exists) are acceptable and can be coded in the inpatient setting, when documented at the
time of discharge.
Thank you,
Radha Vital RN BSN CCDS
CDI Specialist
Please contact via tiger text
Please use your independent medical judgment in providing your response.
[2025-07-06 15:17] VITALS: BP 118/57
[2025-07-06 16:54] LABS: Glucose - Point of Care 79 mg/dl (70-99)
[2025-07-06] MEDS: LIPITOR 40 MG PO (17:18)
[2025-07-06] MEDS: GLUCOPHAGE 500 MG PO (17:22)
[2025-07-06] MEDS: LOVENOX 40 MG SC (17:22)
[2025-07-06 21:15] LABS: Glucose - Point of Care 96 mg/dl (70-99)
[2025-07-06 23:06] VITALS: BP 117/57
[2025-07-07 04:57] VITALS: BMI 29.4
[2025-07-07] MEDS: ANCEF 5 IV ×3 (05:41→21:38)
[2025-07-07 07:35] LABS: Glucose - Point of Care 106 mg/dl (70-99)
[2025-07-07 07:57] VITALS: BP 132/67
[2025-07-07] MEDS: VITAMIN D3 (cholecalciferol) 25 MCG PO (08:08)
[2025-07-07] MEDS: THERAGRAN 1 TABLET PO (08:09)
[2025-07-07] MEDS: HYDROPHOR 1 APPLIC TOPICAL (08:09)
[2025-07-07] MEDS: ASPIR LOW (ENTERIC COATED) 81 MG PO (08:09)
[2025-07-07] MEDS: LASIX 40 MG PO (08:09)
[2025-07-07] MEDS: ZESTRIL 2.5 MG PO (08:09)
[2025-07-07] MEDS: DYAZIDE 1 CAPSULE PO (08:10)
[2025-07-07 08:16] LABS: Hematocrit 34.9 % (39.0-52.0); Hemoglobin 11.4 g/dL (13.0-18.0); Mean Corp Hgb Conc. 32.7 g/dL (33.0-37.0); Mean Corpuscular Volume 94.3 fL (80.0-94.0); Nucleated Red Blood Cells % 0 % (-); Platelet Count 229 10^3/uL (130-400); Red Cell Dist. Width 13.1 % (11.5-14.5)
--- NOTE | 2025-07-07 08:39 | W.PN.HOSP.TC ---
Addendum entered and electronically signed by Celestine Luna MD 07/07/25 21:23:
Attending Addendum-
I saw and evaluated the patient. I reviewed the resident�s note and agree with findings and plan as documented in the resident�s note. Sub: pain improved in LLE. States less red. Dusty fevers chills. Full 12 point ROS reviewed and negative except as
documented Exam: Vitals reviewed in chart GEN-NAd heart RRR Lungs clear abd soft LE B/L LE venous stasis changes with lymphedema LLE less red less warm not painful to palp, pos DP B/L
Plan:
#Acute LEFT lower extremity cellulitis, failure outpatient ABX enhanced by lymphedema
#History of chronic bilateral leg lymphedema
#Peripheral neuropathy
- Recent 3-day course doxycycline-no improvement
- Ultrasound negative for DVT
- cont ancef tolerating well
- appreciate wound care input
- wound cx - gram pos and gram neg
#DM 2
- Accu-Cheks with SSI, HgbA1c- 5.9
- Continue metformin
#HTN
-Continue lisinopril and triamterene/HCTZ
-stable monitor
# Volume Overload
- cont lasix, weights decreased
#HLD
- Continue atorvastatin
#BPH
-restart alfuzosin
#KILEY on CPAP
-cont home CPAP
Other PMH:
Right CEA with patch angioplasty 02/11/2023
Robotic right inguinal hernia repair with mesh 07/15/2024
M�ni�re's disease
Thyroid nodule is being monitored by ENT
DVT prophylaxis
Subcu Lovenox
Code-Full code->DNR
Dispo DC in am to home
Time spent coordinating care, review of plan of care with resident, personally reviewed records in EMR, med rec, consults, notes, labs, radiology, d/w nursing � 51 mins
Original Note:
Today's Communication/Plan
-
Patient's cellulitis does not seem to have improved much. Monitor while continuing Ancef.
For lymphedema, Continue Lasix 40 mg p.o.weight decreased about 5 kg.
Assessment / Plan
Assessment / Plan
Impression
84M pw worsening redness and swelling to his left lower leg HX b/l Orin Lymphedema
Known to wound care center (Dr. Tobin). On Doxycycline for 2 to 3 days without any improvement
Currently on PO Lasix [address] Tobin bur stopped due to Low BP.
- Sono NEG for DVT
- wears Jobst stockings 22 hours per day then B/L leg pumps for 2 hours a day due to chronic lymphedema
Plan
Acute on chronic Lt Leg cellulitis failed OP ABx
HX chronic Orin leg lymphedema
Peripheral neuropathy
- Wound care consult
� Wound culture: Rare gram-positive cocci, rare gram-negative rods
� Furosemide 40 mg p.o. daily started 07/06/2025. 102-104 kg on presentation. 98 kg 07/07/2025
� Blood culture: No growth to date
ABX regimen
�Patient stated that OP PO doxycycline 2 to 3 days did not help
�Patient believes that he had a reaction to Keflex of nausea and vomiting. He was prescribed Keflex after a orthopedic surgery. He already felt nauseous after eating. He took Keflex and vomited 30 minutes later.
� Patient states he does not have knowledge of a prior prior MRSA infection
� He has tolerated cefazolin twice in the past per pharmacist records.
- Empiric IV Zosyn started in ED and discontinued. Switched to Ancef (cefazolin) 1 g Q8h IV 07/06/2025�
T2DM
HgbA1c 5.6%
- c/w DEVELOPMENT REPRESENTATIVE metformin 500 mg every afternoon 5 PM
- ISS low
Essential HTN
- c/w DEVELOPMENT REPRESENTATIVE lisinopril 5 mg twice daily and triamterene/HCTZ 1 tab daily
HLD
- c/w DEVELOPMENT REPRESENTATIVE Atorvastatin 40 mg every afternoon
BPH HX
� Alfuzosin held for couple weeks
KILEY on CPAP HS
- Uses nasal CPAP. Unsure of setting
Anemia, normocytic
Likely due to cellulitis
� Hb 10.9. 12.3 on admission. Baseline 13
Other PMH:
R CEA with patch angioplasty 02/11/2023
Robotic R IH repair with mesh 07/15/2024
M�ni�re's disease
Thyroid nodule is being monitored by ENT
DVT Px: LMWH
Diet: 1800 marine (15 carb) diabetic
Full code
Anticipated Discharge: 24 - 48 hours
Subjective/Interval History
-
Date of Service: July 07, 2025
No acute events overnight. When asked if his cellulitis has resolved, patient says it is difficult to tell. He does not feel the pain or swelling has changed much.
Objective Data
-
Labs:
Microbiology Results - Entire Visit
07/06/25 14:13 Ulcer Wound Culture - Preliminary
Gram negative bacilli
07/06/25 14:13 Ulcer Gram Stain - Preliminary
07/06/25 06:26 Nose MRSA Screen - Final
No Methicillin Resistant Staphylococcus aureus isolated.
07/05/25 14:22 Blood/Venous Blood Culture - Preliminary
No Growth in 24 hours- Final report to follow
Hematology and Coagulation - Last 24 hours
07/07/25 Range/Units
06:40
WBC 6.4 (4.8-10.8) 10^3/uL
RBC 3.70 L (4.70-6.10) 10^6/uL
Hgb 11.4 L (13.0-18.0) g/dL
Hct 34.9 L (39.0-52.0) %
MCV 94.3 H (80.0-94.0) fL
MCH 30.8 (27.0-31.0) pg
MCHC 32.7 L (33.0-37.0) g/dL
RDW 13.1 (11.5-14.5) %
Plt Count 229 (130-400) 10^3/uL
MPV 9.4 (7.4-10.4) fL
Abs Immat Gran (auto) 0.0 (0-0.05) 10^3/uL
Absolute Neuts (auto) 3.9 (1.4-6.5) 10^3/uL
Absolute Lymphs (auto) 1.5 (1.2-3.4) 10^3/uL
Absolute Monos (auto) 0.7 H (0.1-0.6) 10^3/uL
Absolute Eos (auto) 0.2 (0-0.7) 10^3/uL
Absolute Basos (auto) 0.1 (0-0.2) 10^3/uL
Immature Gran % 0.3 (0-0.5) %
Neutrophils % 61.6 (42.2-75.2) %
Lymphocytes % 23.2 (20.5-51.1) %
Monocytes % 10.2 H (1.7-9.3) %
Eosinophils % 3.8 (0-6) %
Basophils % 0.9 (0-2) %
Nucleated RBC % 0 (-) %
Blood Gas and Chemistry - Last 24 hours
10/ Range/Units
06:40
Sodium 137 (135-145) mmol/L
Potassium 3.9 (3.5-5.1) mmol/L
Chloride 101 (98-107) mmol/L
Carbon Dioxide 31 H (22-30) mmol/L
BUN 13 (9-20) mg/dl
Creatinine 0.7 (0.7-1.3) mg/dL
Estimated Creat Clear 88 ml/min
eGFR > 60.00
Glucose 97 (70-99) mg/dl
Calcium 8.9 (8.4-10.2) mg/dl
Total Bilirubin 0.8 (0.2-1.3) mg/dl
AST 34 (17-59) U/L
ALT 43 (0-50) U/L
Alkaline Phosphatase 72 (38-126) U/L
Total Protein 6.0 L (6.3-8.2) g/dl
Albumin 3.5 (3.5-5.0) g/dl
Miscellaneous Lab Results - Last 24 hours
07/06/25 07/06/25 07/07/25 Range/Units
16:53 21:09 07:33
POC Glucose 79 96 106 H (70-99) mg/dl
07/07/25 Range/Units
11:55
POC Glucose 93 (70-99) mg/dl
Vital Signs:
Vital Signs
Temp Pulse Resp BP Pulse Ox
98 F 57 18 132/67 97
07/07/25 07:57 07/07/25 07:57 07/07/25 07:57 07/07/25 07:57 07/07/25 07:57
I&O
07/06/25 07/07/25 07/08/25
06:59 06:59 06:59
Intake Total 620 / 620 1480 / 1480
Output Total 150 / 150 1000 / 1000 150 / 150
Balance 470 / 470 480 / 480 -150 / -150
Weight - last 4 days
07/05/25 07/06/25 07/07/25 07/08/25
06:59 06:59 06:59 06:59
Actual Weight 103.221 kg 98.118 kg
Review of Systems
-
History Source: Patient
All other systems: Reviewed and negative
Physical Exam
-
General: Well Developed, Well Nourished, No Apparent Distress, Comfortable and Conversant
HEENT: Normocephalic, Atraumatic, Anicteric, Nose Appears Normal and Ears Appear Normal
Respiratory: Clear to Auscultation
Cardiac: Regular Rhythm and S1/S2
GI: Soft, Nontender, Nondistended and Normal Bowel Sounds
Musculoskeletal: No Clubbing, No Cyanosis, Edema, Right Lower Extrem (Diffuse scabs at the distal lower leg) and Edema, Left Lower Extrem
Skin: Warm (Left lower leg (cellulitis) slightly warmer than right), Dry and Rash (Erythema border on left lower leg has not receded past yesterday's marked border)
Neuro: Awake and Alert
Psych: Calm
[2025-07-07 08:48] LABS: Albumin 3.5 g/dl (3.5-5.0); Carbon Dioxide 31 mmol/L (22-30); Estimated Creatinine Clearance 88 ml/min; eGFR > 60.00
[2025-07-07 09:03] LABS: ALT (SGPT) 43 U/L (0-50); AST (SGOT) 34 U/L (17-59); Alkaline Phosphatase 72 U/L (38-126); Blood Urea Nitrogen 13 mg/dl (9-20); Calcium 8.9 mg/dl (8.4-10.2); Chloride 101 mmol/L (98-107); Glucose 97 mg/dl (70-99); Potassium 3.9 mmol/L (3.5-5.1); Sodium 137 mmol/L (135-145); Total Protein 6.0 g/dl (6.3-8.2)
[2025-07-07 11:37] VITALS: BP 132/67; PULSE 57
[2025-07-07 11:58] LABS: Glucose - Point of Care 93 mg/dl (70-99)
--- NOTE | 2025-07-07 15:13 | CM ---
CM reviewed chart, patient seen bedside.
Patient reports he would like to pursue outpatient therapy that specializes in lymphedema, will need script upon d/c.
Patient on IV antibiotics.
Care ongoing, will continue to follow for all d.c planning needs.
Plan; home with , will need script for outpatient therapy upon d.c
[2025-07-07 15:22] VITALS: BP 111/59
[2025-07-07 16:37] LABS: Glucose - Point of Care 100 mg/dl (70-99)
[2025-07-07] MEDS: GLUCOPHAGE 500 MG PO ×2 (17:35)
[2025-07-07] MEDS: LIPITOR 40 MG PO (17:36)
[2025-07-07] MEDS: LOVENOX 40 MG SC (17:36)
[2025-07-07] MEDS: ZESTRIL PO (20:44)
[2025-07-07 21:19] LABS: Glucose - Point of Care 116 mg/dl (70-99)
[2025-07-08 04:45] VITALS: BMI 28.9
[2025-07-08] MEDS: ANCEF 5 IV ×2 (05:07→13:51)
[2025-07-08 07:00] VITALS: BP 100/57
--- NOTE | 2025-07-08 08:03 | W.PN.HOSP.TC ---
Addendum entered and electronically signed by Jennie Cassidy MD, Resident 07/09/25 15:25:
Patient was admitted for left lower extremity cellulitis enhanced by chronic bilateral lymphedema.
� Antibiotic regimen was extended from the usual 7 days to 10 days due to chronic lymphedema, as it likely reduces penetration of antibiotics.
Addendum entered and electronically signed by Celestine Luna MD 07/08/25 22:04:
Attending Addendum-
I saw and evaluated the patient. I reviewed the resident�s note and agree with findings and plan as documented in the resident�s note. Sub: pain and swelling greatly improved in LLE. States less red/swollen and warm. Dusty fevers chills. Full 12
point ROS reviewed and negative except as documented Exam: Vitals reviewed in chart GEN-NAd heart RRR Lungs clear abd soft LE B/L LE venous stasis changes with lymphedema LLE much less red, not warm not painful to palp, pos DP B/L
Plan:
#Acute LEFT lower extremity cellulitis, failure outpatient ABX enhanced by lymphedema
#History of chronic bilateral leg lymphedema
#Peripheral neuropathy
- Recent 3-day course doxycycline-no improvement
- resolving significantly
- Ultrasound negative for DVT
- transition to oral abx from IV
- appreciate wound care input
- wound cx - enterococcus and pseudomonas - suspect superficial colonization d/w ID pharmacist, not toxic appearing no treatment recommended
#DM 2
- Accu-Cheks with SSI, HgbA1c- 5.9
- Continue metformin
#HTN
-Continue lisinopril and triamterene/HCTZ
-stable monitor
# Volume Overload
- cont lasix, weights decreased
#HLD
- Continue atorvastatin
#BPH
-restart alfuzosin
#KILEY on CPAP
-cont home CPAP
Other PMH:
Right CEA with patch angioplasty 02/11/2023
Robotic right inguinal hernia repair with mesh 07/15/2024
M�ni�re's disease
Thyroid nodule is being monitored by ENT
DVT prophylaxis
Subcu Lovenox
Code-Full code->DNR
Dispo DC in am
Time spent coordinating care, DC planning, review of DC plan of care with resident, transition of care, review of records, med rec/scripts sent electronically, consults, notes, d/w consultants, nursing, family, and CM� 31 mins >50% of this time was
devoted to counseling and coordination of care
Original Note:
Today's Communication/Plan
-
Discharge on cefuroxime for 6 days.
Wound care follow up.
Assessment / Plan
Assessment / Plan
Impression
84M pw worsening redness and swelling to his left lower leg HX b/l Orin Lymphedema
Known to wound care center (Dr. Tobin). On Doxycycline for 2 to 3 days without any improvement
Currently on PO Lasix [address] Tobin bur stopped due to Low BP.
- Sono NEG for DVT
- wears Jobst stockings 22 hours per day then B/L leg pumps for 2 hours a day due to chronic lymphedema
Plan
Acute on chronic Lt Leg cellulitis failed OP ABx
�Patient stated that OP PO doxycycline 2 to 3 days did not help
�Patient believes that he had a reaction to Keflex of nausea and vomiting. He was prescribed Keflex after a orthopedic surgery. He already felt nauseous after eating. He took Keflex and vomited 30 minutes later.
� Patient states he does not have knowledge of a prior prior MRSA infection
� He has tolerated cefazolin twice in the past per pharmacist records.
� Wound culture: pseudomonas, enterococcus. Likely not true pathogen but colonization
- Empiric IV Zosyn started in ED and discontinued. Switched to Ancef (cefazolin) 1 g Q8h IV 07/06/2025. Cellulitis border retreated on Ancef.
- Given gram-neg bacilli wound cx, discharged on cefuroxime 500 mg PO BID for 6 days
HX chronic Orin leg lymphedema
- Wound care consult
� Continue furosemide 40 mg p.o. daily
- 102-104 kg on presentation. 98 kg 07/07/2025. Next discograms on 07/08/2025
Peripheral neuropathy
�Patient tried gabapentin the past, but discontinued it because it made him sleepy without being effective
T2DM
HgbA1c 5.6%
- c/w STORY READER metformin 500 mg every afternoon 5 PM
- ISS low
Essential HTN
- c/w STORY READER lisinopril 5 mg twice daily and triamterene/HCTZ 1 tab daily
HLD
- c/w STORY READER Atorvastatin 40 mg every afternoon
BPH HX
� Alfuzosin held for couple weeks
KILEY on CPAP HS
- Uses nasal CPAP. Unsure of setting
Anemia, normocytic
Likely due to cellulitis
� Hb 10.9. 12.3 on admission. Baseline 13
Other PMH:
R CEA with patch angioplasty 02/11/2023
Robotic R IH repair with mesh 07/15/2024
M�ni�re's disease
Thyroid nodule is being monitored by ENT
DVT Px: LMWH
Diet: 1800 marine (15 carb) diabetic
Full code
Anticipated Discharge: Today
Subjective/Interval History
-
Date of Service: July 08, 2025
No acute events overnight. Patient finds legs are less swollen/the skin is less tense.
Objective Data
-
Labs:
Microbiology Results - Entire Visit
07/06/25 14:13 Ulcer Wound Culture - Preliminary
Pseudomonas aeruginosa
Enterococcus species
07/06/25 14:13 Ulcer Gram Stain - Preliminary
07/05/25 14:22 Blood/Venous Blood Culture - Preliminary
No Growth in 48 hours- Final report to follow
07/06/25 06:26 Nose MRSA Screen - Final
No Methicillin Resistant Staphylococcus aureus isolated.
Hematology and Coagulation - Last 24 hours
07/08/25 Range/Units
07:02
WBC 6.7 (4.8-10.8) 10^3/uL
RBC 3.82 L (4.70-6.10) 10^6/uL
Hgb 11.7 L (13.0-18.0) g/dL
Hct 35.0 L (39.0-52.0) %
MCV 91.6 (80.0-94.0) fL
MCH 30.6 (27.0-31.0) pg
MCHC 33.4 (33.0-37.0) g/dL
RDW 13.2 (11.5-14.5) %
Plt Count 230 (130-400) 10^3/uL
MPV 9.5 (7.4-10.4) fL
Abs Immat Gran (auto) 0.0 (0-0.05) 10^3/uL
Absolute Neuts (auto) 3.9 (1.4-6.5) 10^3/uL
Absolute Lymphs (auto) 1.8 (1.2-3.4) 10^3/uL
Absolute Monos (auto) 0.7 H (0.1-0.6) 10^3/uL
Absolute Eos (auto) 0.2 (0-0.7) 10^3/uL
Absolute Basos (auto) 0.1 (0-0.2) 10^3/uL
Immature Gran % 0.4 (0-0.5) %
Neutrophils % 58.2 (42.2-75.2) %
Lymphocytes % 26.0 (20.5-51.1) %
Monocytes % 10.8 H (1.7-9.3) %
Eosinophils % 3.6 (0-6) %
Basophils % 1.0 (0-2) %
Nucleated RBC % 0 (-) %
Blood Gas and Chemistry - Last 24 hours
07/08/25 Range/Units
07:01
Sodium 139 (135-145) mmol/L
Potassium 4.1 (3.5-5.1) mmol/L
Chloride 101 (98-107) mmol/L
Carbon Dioxide 33 H (22-30) mmol/L
BUN 18 (9-20) mg/dl
Creatinine 0.7 (0.7-1.3) mg/dL
Estimated Creat Clear 88 ml/min
eGFR > 60.00
Glucose 103 H (70-99) mg/dl
Calcium 8.9 (8.4-10.2) mg/dl
Total Bilirubin 0.7 (0.2-1.3) mg/dl
AST 29 (17-59) U/L
ALT 37 (0-50) U/L
Alkaline Phosphatase 66 (38-126) U/L
Total Protein 6.3 (6.3-8.2) g/dl
Albumin 3.8 (3.5-5.0) g/dl
Miscellaneous Lab Results - Last 24 hours
07/07/25 07/07/25 07/08/25 Range/Units
16:26 21:15 08:21
POC Glucose 100 H 116 H 95 (70-99) mg/dl
07/08/25 Range/Units
11:25
POC Glucose 97 (70-99) mg/dl
Vital Signs:
Vital Signs
Temp Pulse Resp BP Pulse Ox
98 F 63 18 101/46 98
07/07/25 15:22 07/07/25 20:44 07/07/25 15:22 07/07/25 20:44 07/07/25 19:35
I&O
07/07/25 07/08/25 07/09/25
06:59 06:59 06:59
Intake Total 1480 / 1480 1080 / 1080
Output Total 1000 / 1000 625 / 625
Balance 480 / 480 455 / 455
Review of Systems
-
History Source: Patient
All other systems: Reviewed and negative
Physical Exam
-
General: Well Developed, Well Nourished, No Apparent Distress, Comfortable and Conversant
HEENT: Normocephalic, Atraumatic, Anicteric, No Ptosis, Nose Appears Normal and Ears Appear Normal
Respiratory: Clear to Auscultation
Cardiac: Regular Rhythm and S1/S2
GI: Soft, Nontender, Nondistended and Normal Bowel Sounds
Musculoskeletal: No Clubbing, No Cyanosis, Edema, Right Lower Extrem and Edema, Left Lower Extrem (Less edematous than yesterday with wrinkles present)
Skin: Warm, Rash (Erythema border on left lower leg has retreated from the border marked 2 days ago) and Normal Turgor
Neuro: Awake and Alert
Psych: Calm
[2025-07-08 08:07] LABS: Hematocrit 35.0 % (39.0-52.0); Hemoglobin 11.7 g/dL (13.0-18.0); Mean Corp Hgb Conc. 33.4 g/dL (33.0-37.0); Mean Corpuscular Volume 91.6 fL (80.0-94.0); Nucleated Red Blood Cells % 0 % (-); Platelet Count 230 10^3/uL (130-400); Red Cell Dist. Width 13.2 % (11.5-14.5)
[2025-07-08 08:14] LABS: ALT (SGPT) 37 U/L (0-50); AST (SGOT) 29 U/L (17-59); Albumin 3.8 g/dl (3.5-5.0); Alkaline Phosphatase 66 U/L (38-126); Blood Urea Nitrogen 18 mg/dl (9-20); Calcium 8.9 mg/dl (8.4-10.2); Carbon Dioxide 33 mmol/L (22-30); Chloride 101 mmol/L (98-107); Estimated Creatinine Clearance 88 ml/min; Glucose 103 mg/dl (70-99); Potassium 4.1 mmol/L (3.5-5.1); Sodium 139 mmol/L (135-145); Total Protein 6.3 g/dl (6.3-8.2); eGFR > 60.00
[2025-07-08 08:22] LABS: Glucose - Point of Care 95 mg/dl (70-99)
[2025-07-08] MEDS: DYAZIDE 1 CAPSULE PO (08:29)
[2025-07-08] MEDS: LASIX 40 MG PO (08:29)
[2025-07-08] MEDS: ASPIR LOW (ENTERIC COATED) 81 MG PO (08:29)
[2025-07-08] MEDS: THERAGRAN 1 TABLET PO (08:29)
[2025-07-08] MEDS: VITAMIN D3 (cholecalciferol) 25 MCG PO (08:30)
[2025-07-08] MEDS: HYDROPHOR 1 APPLIC TOPICAL (08:30)
[2025-07-08] MEDS: ZESTRIL PO (08:30)
--- NOTE | 2025-07-08 10:58 | CM ---
CM reviewed chart, patient seen bedside.
Patient for d/c today- agreeable to script for outpatient therapy, confirmed with [facility] liaison do not specialize in lymphedema therapy.
IMM verbally reviewed, provided with copy, placed in chart.
Patient confirms transport home.
CM will continue to follow.
Plan; home with script for outpatient therapy
[2025-07-08 11:27] LABS: Glucose - Point of Care 97 mg/dl (70-99)
[2025-07-08 15:00] VITALS: BP 109/52
--- NOTE | 2025-07-08 17:36 | W.DCSUMMARY ---
Addendum entered and electronically signed by Celestine Luna MD 07/08/25 22:04:
Read, reviewed, and agree. See same day progress note for additional details.
Tunde Luna MD
Original Note:
Documented by User: Jennie Cassidy MD, Resident 07/08/25 17:47
Discharge Summary
Discharge Data
Date of Admission: 07/05/25
Date of Discharge: 07/08/25
Total time spent discharging patient (in min): 35
-
Pending Results: No
Hospital Course
Mr. Prateek Brennan presented with worsening redness and swelling to his left lower leg in the setting of chronic b/l Orin Lymphedema.
He is known to wound care center (Dr. Tobin). He took doxycycline for 2 to 3 days without improvement of the rash. For his lymphedema, he takes PO Lasix [address] Tobin but stopped due to Low BP. He wears Jobst stockings 22 hours per
day and B/L leg pumps for 2 hours a day in the a.m. He had a recent outpatient ultrasound that was NEG for DVT.
During this admission, he he remained afebrile and did not have leukocytosis. He was started on Zosyn IV in the ED. Since he did not have prior Pseudomonas infection, his antibiotics were switched to cefazolin 1 g every 8 hours IV. His cellulitis
border retreated on cefazolin. He was discharged on cefuroxime 500 mg p.o. twice daily for 6 additional days to complete 10-day course. He was prescribed a longer course due to chronic lymphedema that may be impeding penetrance of antibiotics.
For his lymphedema, he had held Lasix 40 mg p.o. for few days due to soft blood pressures at home. Lasix 40 mg p.o. was restarted on admission and his weight decreased from 103 to 96 kg. He was discharged on Lasix 40 mg p.o. daily.
Venous Doppler 06/22/2025 (before admission)
1. No saphenous insufficiency demonstrated on either side. Multiple prior ablations as detailed above.
2. No evidence of deep venous insufficiency on either side.
Acute on chronic Lt Leg cellulitis failed OP ABx
�Patient stated that OP PO doxycycline 2 to 3 days did not help
�Patient believes that he had a reaction to Keflex of nausea and vomiting. He was prescribed Keflex after a orthopedic surgery. He already felt nauseous after eating. He took Keflex and vomited 30 minutes later.
� Patient states he does not have knowledge of a prior prior MRSA infection
� He has tolerated cefazolin twice in the past per pharmacist records.
� Wound culture: pseudomonas, enterococcus. Likely not true pathogen but colonization
- Empiric IV Zosyn started in ED and discontinued. Switched to Ancef (cefazolin) 1 g Q8h IV 07/06/2025. Cellulitis border retreated on Ancef.
- Given gram-neg bacilli wound cx, discharged on cefuroxime 500 mg PO BID for 6 days
HX chronic Orin leg lymphedema
- Wound care consult
� Continue furosemide 40 mg p.o. daily
- 102-104 kg on presentation. 98 kg 07/07/2025. 96 kg on 07/08/2025
Discharge Plan
-
Patient Disposition: Home with Home Care
Discharge Diagnosis/Procedures: Cellulitis
Bilateral chronic lymphedema
Diabetes
Hypertension
Hyperlipidemia
BPH
KILEY
Anemia
Condition: Good
Diet: Low Cholesterol, Low Sodium and Diabetic, Carb Controlled
Activity: With assistance
Driving Restrictions: As prior to admission
Bathing Restrictions: Applied Vaseline to both legs after washing with s
Activity Restrictions/Additional Instructions:
Wound Care Instructions
Wash both legs with soap and water, apply mineral oil or Aquaphor daily
L lower leg- ABD pads and ramone prn drainage daily. If no drainage then open to air.
Resume compression with Farrow wraps and lymphedema pumps as scheduled.
Leg elevation when sitting
Follow up at wound care center call for an appointment.
Referrals:
[place],Imelda, MD [Family Provider, Family Practice]
Troy Tobin MD [Active, Plastic Surgery] - in one week
Referral Note: Bilateral lymphedema and left lower leg cellulitis
Additional Discharge Medication Instructions: Please finish your course of antibiotics for your left lower leg cellulitis (skin infection) with 6 days of cefuroxime 500 mg twice daily. Please follow the wound care instructions above.
Regarding lymphedema, please follow-up with Dr. Tobin/your wound care clinic and continue Lasix 40 mg daily.
Please follow-up with your primary care doctor regarding this hospitalization.
It was a pleasure to be part of your care team.
Prescriptions:
New
Aquaphor Healing 41 % Ointment
1 applic topical DAILY Qty: 20 0RF
cefuroxime axetil 500 mg tablet
500 mg PO BID Qty: 13 0RF
Continued
atorvastatin 40 MG tablet
40 mg PO QPM
triamterene-hydrochlorothiazid 37.5-25 mg Tablet
1 tab PO DAILY
fluticasone propionate 50 mcg/actuation [place],Suspension
2 spray INTRANASAL HS
lisinopril 2.5 mg Tablet
2.5 mg PO BID
metformin 500 mg Tablet
500 mg PO QPM
aspirin 81 mg Tablet,Delayed Release (Dr/Ec)
81 mg PO DAILY
Multivitamin 50 Plus Tablet
1 tab PO DAILY
Glucosamine Complex-MSM Capsule
1 cap PO DAILY
omega 5-rim-jqv-fish oil [Fish Oil] 1,200 (144-216) mg Capsule
1 cap PO DAILY
cholecalciferol (vitamin D3) [Vitamin D3] 25 mcg (1,000 unit) Tablet
25 mcg PO DAILY
acetaminophen 325 mg tablet
650 mg PO Q6HPRN PRN (Reason: mild pain) Qty: 14 0RF
ibuprofen 600 mg tablet
600 mg PO Q6H PRN (Reason: pain) Qty: 14 0RF
furosemide 40 mg tablet
40 mg PO DAILYPRN PRN (Reason: leg edema)
Discontinued
doxycycline hyclate 100 mg capsule
100 mg PO BID Qty: 14 0RF
Discharge Orders:
Discharge Patient (As Directed); Ordered 07/08/25
Ordered By: Jennie Cassidy
Discharge Date and Time
Discharge Date/Time: 07/08/25 16:18
Print Language: TURKMEN

Documented by User: Celestine Luna MD 07/08/25 22:00
Discharge Summary
Discharge Data
Date of Admission: 07/05/25
Date of Discharge: 07/08/25
Discharge Plan
-
Patient Disposition: Home with Home Care
Discharge Diagnosis/Procedures: Cellulitis
Bilateral chronic lymphedema
Diabetes
Hypertension
Hyperlipidemia
BPH
KILEY
Anemia
Condition: Good
Diet: Low Cholesterol, Low Sodium and Diabetic, Carb Controlled
Activity: With assistance
Driving Restrictions: As prior to admission
Bathing Restrictions: Applied Vaseline to both legs after washing with s
Activity Restrictions/Additional Instructions:
Wound Care Instructions
Wash both legs with soap and water, apply mineral oil or Aquaphor daily
L lower leg- ABD pads and ramone prn drainage daily. If no drainage then open to air.
Resume compression with Farrow wraps and lymphedema pumps as scheduled.
Leg elevation when sitting
Follow up at wound care center call for an appointment.
Referrals:
Imelda Gandhi MD [Family Provider, Family Practice]
Troy Tobin MD [Active, Plastic Surgery] - in one week
Referral Note: Bilateral lymphedema and left lower leg cellulitis
Additional Discharge Medication Instructions: Please finish your course of antibiotics for your left lower leg cellulitis (skin infection) with 6 days of cefuroxime 500 mg twice daily. Please follow the wound care instructions above.
Regarding lymphedema, please follow-up with Dr. Tobin/your wound care clinic and continue Lasix 40 mg daily.
Please follow-up with your primary care doctor regarding this hospitalization.
It was a pleasure to be part of your care team.
Prescriptions:
New
Aquaphor Healing 41 % Ointment
1 applic topical DAILY Qty: 20 0RF
cefuroxime axetil 500 mg tablet
500 mg PO BID Qty: 13 0RF
Continued
atorvastatin 40 MG tablet
40 mg PO QPM
triamterene-hydrochlorothiazid 37.5-25 mg Tablet
1 tab PO DAILY
fluticasone propionate 50 mcg/actuation [place]an,Suspension
2 spray INTRANASAL HS
lisinopril 2.5 mg Tablet
2.5 mg PO BID
metformin 500 mg Tablet
500 mg PO QPM
aspirin 81 mg Tablet,Delayed Release (Dr/Ec)
81 mg PO DAILY
Multivitamin 50 Plus Tablet
1 tab PO DAILY
Glucosamine Complex-MSM Capsule
1 cap PO DAILY
omega 6-efq-qwl-fish oil [Fish Oil] 1,200 (144-216) mg Capsule
1 cap PO DAILY
cholecalciferol (vitamin D3) [Vitamin D3] 25 mcg (1,000 unit) Tablet
25 mcg PO DAILY
acetaminophen 325 mg tablet
650 mg PO Q6HPRN PRN (Reason: mild pain) Qty: 14 0RF
ibuprofen 600 mg tablet
600 mg PO Q6H PRN (Reason: pain) Qty: 14 0RF
furosemide 40 mg tablet
40 mg PO DAILYPRN PRN (Reason: leg edema)
Discontinued
doxycycline hyclate 100 mg capsule
100 mg PO BID Qty: 14 0RF
Discharge Orders:
Discharge Patient (As Directed); Ordered 07/08/25
Ordered By: Jennie Cassidy
Discharge Date and Time
Discharge Date/Time: 07/08/25 16:18
Print Language: TURKMEN
== END 2025-07-08 16:18 | disposition home or self-care (01) | DRG 603 ==
LOC: 4 WEST ACU 20:14
PROVIDERS: Clinical Nurse Specialist Family Health; Student in an Organized Health Care Education/Training Program; ADMITTING PHYSICIAN Internal Medicine; ATTENDING PHYSICIAN Family Medicine; EMERGENCY PHYSICIAN Emergency Medicine; FAMILY PHYSICIAN Family Medicine
PROC: 5A09357 Assistance with Respiratory Ventilation, Less than 24 Consecutive Hours, Continuous Positive Airway Pressure (ICD-10-PCS; 2025-07-05)
DX: L03.116 Cellulitis of left lower limb (principal); I89.0 Lymphedema, not elsewhere classified; E11.42 Type 2 diabetes mellitus with diabetic polyneuropathy; I10 Essential (primary) hypertension; E78.00 Pure hypercholesterolemia, unspecified; N40.0 Benign prostatic hyperplasia without lower urinary tract symptoms; G47.33 Obstructive sleep apnea (adult) (pediatric); D64.9 Anemia, unspecified; Z79.82 Long term (current) use of aspirin; Z79.899 Other long term (current) drug therapy; Z88.1 Allergy status to other antibiotic agents; Z79.84 Long term (current) use of oral hypoglycemic drugs; Z66 Do not resuscitate; E04.1 Nontoxic single thyroid nodule
CPT/HCPCS: 80053; 82962; 83036; 85025; 87040; 87070; 87077; 87186; 87205; 94660; 96365; 97110; 97116; 97163; 99215; 99284

== ENCOUNTER → 2025-07-15 13:40 | Outpatient (REF) | payer MEDICARE, SELFPAY | LOC: WOUND 13:40 | PROVIDERS: ATTENDING PHYSICIAN Surgery; FAMILY PHYSICIAN Family Medicine | DX: I87.313 Chronic venous hypertension (idiopathic) with ulcer of bilateral lower extremity (principal); L03.116 Cellulitis of left lower limb; L97.219 Non-pressure chronic ulcer of right calf with unspecified severity; L97.229 Non-pressure chronic ulcer of left calf with unspecified severity; I10 Essential (primary) hypertension; I25.10 Atherosclerotic heart disease of native coronary artery without angina pectoris; Z98.890 Other specified postprocedural states | CPT/HCPCS: 99212 ==

== ENCOUNTER → 2025-07-16 10:36 | Outpatient (REF) | payer MEDICARE, SELFPAY | LOC: PAVMRI 10:36 | PROVIDERS: ATTENDING PHYSICIAN Orthopaedic Surgery; FAMILY PHYSICIAN Family Medicine | DX: M48.061 Spinal stenosis, lumbar region without neurogenic claudication (principal) | CPT/HCPCS: 72148 ==

== ENCOUNTER → 2025-08-29 07:37 | Outpatient (REF) | payer MEDICARE, SELFPAY ==
[2025-08-29 09:50] LABS: Hematocrit 39.2 % (39.0-52.0); Hemoglobin 13.3 g/dL (13.0-18.0); Mean Corp Hgb Conc. 33.9 g/dL (33.0-37.0); Mean Corpuscular Volume 89.3 fL (80.0-94.0); Nucleated Red Blood Cells % 0 % (-); Platelet Count 198 10^3/uL (130-400); Red Cell Dist. Width 13.4 % (11.5-14.5)
[2025-08-29 10:37] LABS: Microalb - Urine Creatinine 86.100 mg/dl
[2025-08-29 10:41] LABS: Microalbumin, Random Urine 1.0 mg/dl (0.6-1.7)
[2025-08-29 10:42] LABS: ALT (SGPT) 36 U/L (0-50); AST (SGOT) 31 U/L (17-59); Albumin 4.3 g/dl (3.5-5.0); Alkaline Phosphatase 75 U/L (38-126); Blood Urea Nitrogen 17 mg/dl (9-20); Calcium 9.5 mg/dl (8.4-10.2); Carbon Dioxide 32 mmol/L (22-30); Chloride 102 mmol/L (98-107); Glucose 97 mg/dl (70-99); HDL Cholesterol 47 mg/dl; LDL Cholesterol, Calculated 34 mg/dl; Potassium 4.1 mmol/L (3.5-5.1); Sodium 138 mmol/L (135-145); Total Protein 7.2 g/dl (6.3-8.2); Very Low Density Lipoprotein 12 mg/dl (0-30); eGFR > 60.00
[2025-08-29 11:22] LABS: Glycohemoglobin (HgbA1c) 5.7 % (4.0-5.9)
[2025-08-29 13:33] LABS: PSA, Total - Screen 0.22 ng/ml (0.0-4.0)
== END ==
LOC: HWLAB 07:37
PROVIDERS: ATTENDING PHYSICIAN Family Medicine
DX: Z00.00 Encounter for general adult medical examination without abnormal findings (principal); Z12.5 Encounter for screening for malignant neoplasm of prostate; E11.42 Type 2 diabetes mellitus with diabetic polyneuropathy
CPT/HCPCS: 36415; 80053; 80061; 82043; 82570; 83036; 85025; G0103

== ENCOUNTER 2025-08-30 10:53 | Outpatient (REF) | payer MEDICARE, SELFPAY | END 2025-08-30 23:59 | disposition home or self-care (01) | LOC: WOUND 10:53 | PROVIDERS: ATTENDING PHYSICIAN Registered Nurse; FAMILY PHYSICIAN Family Medicine | DX: L97.229 Non-pressure chronic ulcer of left calf with unspecified severity (principal); I87.313 Chronic venous hypertension (idiopathic) with ulcer of bilateral lower extremity; L03.116 Cellulitis of left lower limb; I10 Essential (primary) hypertension; I25.10 Atherosclerotic heart disease of native coronary artery without angina pectoris | CPT/HCPCS: 99213 ==